=== PATIENT | female | born 1995 | race Caucasian/White ===

== ENCOUNTER → 2017-01-27 | Outpatient (CLI) | payer OTHER ==
--- NOTE | 2017-01-27 09:31 | US ---
EXAMINATION TYPE: US gallbladder DATE OF EXAM: 01/27/2017 COMPARISON: CT abdomen and pelvis May 06, 2013 CLINICAL HISTORY: R10.11 RUQ PAIN. Pain ongoing for 1 month EXAM MEASUREMENTS: Liver Length: 18.5 cm Gallbladder Wall: 0.2 cm CBD: 0.5 cm Right Kidney: 10.0 x 5.8 x 4.5 cm larger body habitus Pancreas: wnl Liver: upper limits of normal for size, difficult to penetrate Gallbladder: 0.5cm polyp Evidence for sonographic Pantoja's sign: no CBD: wnl Right Kidney: wnl There is 5 mm nonshadowing nonmobile hyperechoic focus felt to reflect small polyp. IMPRESSION: No shadowing mobile gallstones or ultrasound evidence for acute cholecystitis.
[2017-01-27 09:44] LABS: Basophils % (A) 1 %; CH 27.5; CHCM 34.8; Eosinophils # (A) 0.2 k/uL (0-0.7); Eosinophils % (A) 3 %; HCT 40.1 % (34.0-46.0); HGB 13.9 gm/dL (11.4-16.0); Luc # (Auto) 0.14; Luc % (Auto) 2; Lymphocytes % (A) 29 %; MCH 27.4 pg (25.0-35.0); MCHC 34.6 g/dL (31.0-37.0); MCV 79.3 fL (80.0-100.0); Mean Platelet Volume 6.6; Monocytes # (A) 0.4 k/uL (0-1.0); Monocytes % (A) 5 %; Neutrophils # (A) 4.1 k/uL (1.3-7.7); Neutrophils % (A) 59 %; RBC 5.06 m/uL (3.80-5.40); RDW 13.4 % (11.5-15.5); WBC 6.9 k/uL (3.8-10.6); WBC (Perox) 7.41
[2017-01-27 10:15] LABS: ALT 33 U/L (9-52); AST 21 U/L (14-36); Alkaline Phosphatase 76 U/L (38-126); Anion Gap 11 mmol/L; Blood Urea Nitrogen 8 mg/dL (7-17); Calcium 9.1 mg/dL (8.4-10.2); Carbon Dioxide 25 mmol/L (22-30); Chloride 105 mmol/L (98-107); Cholesterol 171 mg/dL (<200); Glucose 82 mg/dL (74-99); HDL Cholesterol 43 mg/dL (40-60); Non-African American GFR(MDRD) >60 (>60 ml/min/1.73 sqM); Potassium 4.4 mmol/L (3.5-5.1); Sodium 141 mmol/L (137-145); Total Bilirubin 0.3 mg/dL (0.2-1.3); Total Protein 7.1 g/dL (6.3-8.2)
== END | disposition home or self-care (01) ==
LOC: RADUSWWP 12-23 06:46
PROVIDERS: ATTEND Family Medicine
DX: R10.11 Right upper quadrant pain (principal)
CPT/HCPCS: 36415; 76705; 80053; 80061; 84443; 85025

== ENCOUNTER 2017-12-25 06:14 | Emergency (ER) | payer OTHER ==
[2017-12-25] MEDS ORDERED: SODIUM CHLORIDE 0.9% 1,000 ML IV ONE (06:33)
[2017-12-25] MEDS ORDERED: ONDANSETRON 4 MG/2 ML VIAL IVP STA (06:33)
[2017-12-25] MEDS ORDERED: ACETAMINOPHEN TAB 500 MG TAB PO STA (06:34)
[2017-12-25] MEDS ORDERED: KETOROLAC 30 MG/ML 1 ML VIAL IVP STA (06:34)
--- NOTE | 2017-12-25 06:44 | ED ---
Skin/Abscess/FB HPI - General Chief complaint: Skin/Abscess/Foreign Body Stated complaint: Sunburn/Nausea Time Seen by Provider: 12/25/17 06:30 Source: patient, RN notes reviewed, old records reviewed Mode of arrival: ambulatory Limitations: no limitations - History of Present Illness Initial comments: 22-year-old female presents emergency room stay she would've severe sunburn over her entire body. Patient reports that she was out at the beach [place] 5 hours, for the first time. Patient states that she did wear sunblock. She reports today she had diarrhea this felt very nauseated. She reports that she is not had any Motrin or Tylenol. She try to make herself vomit. She denies any fever but reports she feels chilled. No other symptoms at this time. - Related Data Home Medications Medication Instructions Recorded Confirmed Pnv,Calcium 72/Iron/Folic Acid 1 each PO DAILY 11/13/15 12/09/15 [ Plus Tablet] Previous Rx's Medication Instructions Recorded Acetaminophen-Codeine 300-30mg 1 each PO Q4HR PRN #30 tab 12/10/15 [Tylenol w/codeine #3] Ibuprofen [Motrin] 600 mg PO Q6HR PRN #60 tab 12/10/15 Ibuprofen [Motrin] 600 mg PO Q8HR PRN #20 tab 12/25/17 Allergies Allergy/AdvReac Type Severity Reaction Status Date / Time No Known Allergies Allergy Verified 12/25/17 06:23 Review of Systems ROS Statement: Those systems with pertinent positive or pertinent negative responses have been documented in the HPI. ROS Other: All systems not noted in ROS Statement are negative. Past Medical History Past Medical History: No Reported History History of Any Multi-Drug Resistant Organisms: None Reported Past Surgical History: No Surgical Hx Reported Past Anesthesia/Blood Transfusion Reactions: No Reported Reaction Past Psychological History: No Psychological Hx Reported Smoking Status: Current some day smoker Past Alcohol Use History: Occasional Past Drug Use History: None Reported - Past Family History Father Family Medical History: No Reported History General Exam - General Exam Comments Initial Comments: This Patient since [id number] female. Alert and oriented. No acute distress. Limitations: no limitations General appearance: alert, in no apparent distress Head exam: Present: atraumatic, normocephalic, normal inspection Eye exam: Present: normal appearance, PERRL, EOMI. Absent: scleral icterus, conjunctival injection, periorbital swelling ENT exam: Present: normal exam, mucous membranes moist Neck exam: Present: normal inspection. Absent: tenderness, meningismus, lymphadenopathy Respiratory exam: Present: normal lung sounds bilaterally. Absent: respiratory distress, wheezes, rales, rhonchi, stridor Cardiovascular Exam: Present: regular rate, normal rhythm, normal heart sounds. Absent: systolic murmur, diastolic murmur, rubs, gallop, clicks Extremities exam: Present: normal inspection, full ROM, normal capillary refill. Absent: tenderness, pedal edema, joint swelling, calf tenderness Back exam: Present: normal inspection Neurological exam: Present: alert, oriented X3, CN II-XII intact Skin exam: Present: warm, dry, intact, normal color, rash (First-degree burn over chest abdomen back legs and arms and face evidence of lines from bathing suit.) Course Vital Signs 12/25/17 06:19 Temperature 98.2 F Pulse Rate 106 H Respiratory 19 Rate Blood Pressure 110/65 O2 Sat by Pulse 100 Oximetry Medical Decision Making - Medical Decision Making 22-year-old female presents emergency room stay she would've severe sunburn over her entire body. Patient reports that she was out at the beach yesterday for 5 hours, for the first time. Patient states that she did wear sunblock. She reports today she had diarrhea this felt very nauseated. Patient has first- degree sheikh over her chest, face, back, abdomen, arms and legs. Patient was given 1 L of fluid, Toradol and Zofran. She was reevaluated and feels much better at this time. Discussion is to take anti-inflammatory medication and do no baths as well as apply aloe over her skin. She is off today for work. Return tomorrow. Discussed that should that she remain hydrated today. A questions answered return parameters were discussed. Disposition Clinical Impression: Sunburn of first degree Disposition: HOME SELF-CARE Condition: Good Instructions: Sunburn (ED) Additional Instructions: Patient is to rest, remain hydrated. Apply aloe to skin for pain relief. Patient should return to emergency department if any alarming signs or symptoms occur. Take Motrin every 4-6 hours. Prescriptions: Ibuprofen [Motrin] 600 mg PO Q8HR PRN #20 tab PRN Reason: Pain Is patient prescribed a controlled substance at d/c from ED?: No When asked, does pt state using other controlled substances?: No If prescribed controlled substance>3 days was MAPS reviewed?: No If opioid is for acute pain is fill amount 7 days or less?: No If Rx opioid, was Start Talking consent form obtained?: No Referrals: Joel Sainz Jr, DO [Primary Care Provider] - 1-2 days Time of Disposition: 07:46
[2017-12-25] MEDS ORDERED: ONDANSETRON 4 MG ODT STARTER PACK 2 TAB BTL PO STA (07:46)
[2017-12-25 07:58] VITALS: BP 121/64; PULSE 89; RESP 18; TEMP 97.9
== END 2017-12-25 08:02 | disposition home or self-care (01) ==
LOC: EC 06:14
DX: L55.0 Sunburn of first degree (principal); R19.7 Diarrhea, unspecified; R11.0 Nausea; F17.200 Nicotine dependence, unspecified, uncomplicated
CPT/HCPCS: 99283; 96374; 96375; 96361; J2405; J1885; S0119

== ENCOUNTER 2018-09-11 11:30 | Emergency (ER) | payer MEDICAID, OTHER ==
[2018-09-11 11:37] VITALS: RESP 18
--- NOTE | 2018-09-11 11:40 | ED ---
General Adult HPI - General Chief complaint: Dizziness Stated complaint: Hypoglycemia Time Seen by Provider: 09/11/18 11:39 Source: patient, RN notes reviewed Mode of arrival: ambulatory Limitations: no limitations - History of Present Illness Initial comments: Patient 22-year-old female presented to the emergency room today with chief complaint of possible hypoglycemia. She does admit that she feels like her sugars dropping. She does admit that she's been sick with cough congestion and body aches and chills. She states she has the flu but has not been tested. She states the symptoms started 4 days ago. She states that she's been trying to ea t and drink here and she states that she's had some dizzy episodes. She does admit that it's better after she eats something. She states that yesterday she felt very dizzy and her father helped her eat some peanut butter which made her feel better. Patient states she feels well at this time is not having the dizziness currently. She denies any other complaints. States not taken any Tylenol or Motrin for any fever. Patient denies any recent shortness of breath, chest pain, back pain, abdominal pain, nausea or vomiting, numbness or tingling, headaches or visual changes, or any other complaints. - Related Data Home Medications Medication Instructions Recorded Confirmed No Known Home Medications 09/11/18 09/11/18 Allergies Allergy/AdvReac Type Severity Reaction Status Date / Time No Known Allergies Allergy Verified 09/11/18 11:46 Review of Systems ROS Statement: Those systems with pertinent positive or pertinent negative responses have been documented in the HPI. ROS Other: All systems not noted in ROS Statement are negative. Past Medical History Past Medical History: No Reported History History of Any Multi-Drug Resistant Organisms: None Reported Past Surgical History: No Surgical Hx Reported Past Anesthesia/Blood Transfusion Reactions: No Reported Reaction Past Psychological History: No Psychological Hx Reported Smoking Status: Former smoker Past Alcohol Use History: Occasional Past Drug Use History: None Reported - Past Family History Father Family Medical History: No Reported History General Exam - General Exam Comments Initial Comments: General: The patient is awake and alert, in no distress, and does not appear acutely ill. Eye: Pupils are equal, round and reactive to light, extra-ocular movements are intact. No nystagmus. There is normal conjunctiva bilaterally. No signs of icterus. Ears, nose, mouth and throat: There are moist mucous membranes and no oral lesions. Neck: The neck is supple, there is no tenderness or JVD. Cardiovascular: There is a regular rate and rhythm. No murmur, rub or gallop is appreciated. Respiratory: Lungs are clear to auscultation, respirations are non-labored, breath sounds are equal. No wheezes, stridor, rales, or rhonchi. Musculoskeletal: Normal ROM, no tenderness. Strength 5/5. Sensation intact. Pulses equal bilaterally 2+. Neurological: A&O x 3. CN II-XII intact, There are no obvious motor or sensory deficits. Coordination appears grossly intact. Speech is normal. Skin: Skin is warm and dry and no rashes or lesions are noted. Psychiatric: Cooperative, appropriate mood & affect, normal judgment. Limitations: no limitations Course Vital Signs 09/11/18 11:33 Temperature 99.2 F Pulse Rate 88 Respiratory 18 Rate Blood Pressure 127/83 O2 Sat by Pulse 98 Oximetry Medical Decision Making - Medical Decision Making Patient reexamined at this time shows no signs of distress. Patient is influenza A positive. She has been sick over the last 4 days. She is out side of therapeutic range for Tamiflu. Patient blood work reviewed in a finger stick glucose was 86 on the blood work 78. Patient does admit that she's felt like her sugars drop which are audible recorded at home. Her appetite has been decreased due to recent influenza. Patient does admit that she's feeling better. She states appetite has been increasing. She is advised that she should be eating regular meals. Advised that she can keep a snack with her as well to help keep her sugar elevated. At this time she'll be discharged home she is advised follow-up family doctor over the next 2 days. Advised return if any symptoms increase or worsen. - Lab Data Result diagrams: 09/11/18 12:57 09/11/18 12:57 Lab Results 09/11/18 09/11/18 09/11/18 Range/Units 12:34 12:34 12:38 WBC (3.8-10.6) k/uL RBC (3.80-5.40) m/uL Hgb (11.4-16.0) gm/dL Hct (34.0-46.0) % MCV (80.0-100.0) fL MCH (25.0-35.0) pg MCHC (31.0-37.0) g/dL RDW (11.5-15.5) % Plt Count (150-450) k/uL Neutrophils % % Lymphocytes % % Monocytes % % Eosinophils % % Basophils % % Neutrophils # (1.3-7.7) k/uL Lymphocytes # (1.0-4.8) k/uL Monocytes # (0-1.0) k/uL Eosinophils # (0-0.7) k/uL Basophils # (0-0.2) k/uL Sodium (137-145) mmol/L Potassium (3.5-5.1) mmol/L Chloride (98-107) mmol/L Carbon Dioxide (22-30) mmol/L Anion Gap mmol/L BUN (7-17) mg/dL Creatinine (0.52-1.04) mg/dL Est GFR (CKD-EPI)AfAm (>60 ml/min/1.73 sqM) Est GFR (CKD-EPI)NonAf (>60 ml/min/1.73 sqM) Glucose (74-99) mg/dL POC Glucose (mg/dL) 86 (75-99) mg/dL POC Glu Coach Wirer ID Salgat, Eve Calcium (8.4-10.2) mg/dL Total Bilirubin (0.2-1.3) mg/dL AST (14-36) U/L ALT (9-52) U/L Alkaline Phosphatase (38-126) U/L Total Protein (6.3-8.2) g/dL Albumin (3.5-5.0) g/dL Urine Color Yellow Urine Appearance Clear (Clear) Urine pH 6.0 (5.0-8.0) Ur Specific [place] 1.021 (1.001-1.035) Urine Protein Trace H (Negative) Urine Glucose (UA) Negative (Negative) Urine Ketones Negative (Negative) Urine Blood Negative (Negative) Urine Nitrite Negative (Negative) Urine Bilirubin Negative (Negative) Urine Urobilinogen <2.0 (<2.0) mg/dL Ur Leukocyte Esterase Negative (Negative) Urine HCG, Qual Not Detected (Not Detectd) Influenza Type A RNA (Not Detectd) Influenza Type B (PCR) (Not Detectd) 09/11/18 09/11/18 09/11/18 Range/Units 12:40 12:57 12:57 WBC 4.4 (3.8-10.6) k/uL RBC 4.91 (3.80-5.40) m/uL Hgb 13.0 (11.4-16.0) gm/dL Hct 39.8 (34.0-46.0) % MCV 81.0 (80.0-100.0) fL MCH 26.5 (25.0-35.0) pg MCHC 32.7 (31.0-37.0) g/dL RDW 12.5 (11.5-15.5) % Plt Count 199 (150-450) k/uL Neutrophils % 56 % Lymphocytes % 33 % Monocytes % 8 % Eosinophils % 1 % Basophils % 1 % Neutrophils # 2.4 (1.3-7.7) k/uL Lymphocytes # 1.4 (1.0-4.8) k/uL Monocytes # 0.4 (0-1.0) k/uL Eosinophils # 0.0 (0-0.7) k/uL Basophils # 0.0 (0-0.2) k/uL Sodium 138 (137-145) mmol/L Potassium 4.7 (3.5-5.1) mmol/L Chloride 102 (98-107) mmol/L Carbon Dioxide 25 (22-30) mmol/L Anion Gap 11 mmol/L BUN 10 (7-17) mg/dL Creatinine 0.67 (0.52-1.04) mg/dL Est GFR (CKD-EPI)AfAm >90 (>60 ml/min/1.73 sqM) Est GFR (CKD-EPI)NonAf >90 (>60 ml/min/1.73 sqM) Glucose 78 (74-99) mg/dL POC Glucose (mg/dL) (75-99) mg/dL POC Glu Coach Wirer ID Calcium 9.2 (8.4-10.2) mg/dL Total Bilirubin 0.4 (0.2-1.3) mg/dL AST 33 (14-36) U/L ALT 42 (9-52) U/L Alkaline Phosphatase 74 (38-126) U/L Total Protein 7.9 (6.3-8.2) g/dL Albumin 4.7 (3.5-5.0) g/dL Urine Color Urine Appearance (Clear) Urine pH (5.0-8.0) Ur Specific Ellsworth (1.001-1.035) Urine Protein (Negative) Urine Glucose (UA) (Negative) Urine Ketones (Negative) Urine Blood (Negative) Urine Nitrite (Negative) Urine Bilirubin (Negative) Urine Urobilinogen (<2.0) mg/dL Ur Leukocyte Esterase (Negative) Urine HCG, Qual (Not Detectd) Influenza Type A RNA Detected H (Not Detectd) Influenza Type B (PCR) Not Detected (Not Detectd) Disposition Clinical Impression: Influenza A, Hypoglycemia Disposition: HOME SELF-CARE Condition: Good Instructions (If sedation given, give patient instructions): Influenza (ED) Additional Instructions: Please follow-up with family doctor in the next 2 days of symptoms have not improved. Please return to emergency room if the symptoms increase or worsen or for any other concerns. Is patient prescribed a controlled substance at d/c from ED?: No Referrals: Joel Sainz Jr, [Primary Care Provider] - 1-2 days Time of Disposition: 13:44
[2018-09-11] MEDS ORDERED: SODIUM CHLORIDE 0.9% 1,000 ML IV STA (12:01)
[2018-09-11 12:40] LABS: Glucose,Whole Blood 86 mg/dL (75-99)
[2018-09-11 12:59] LABS: Appearance,Urine Clear (Clear); Bilirubin,Urine Negative (Negative); Blood,Urine Negative (Negative); Color,Urine Yellow; Glucose,Urine (UA) Negative (Negative); Ketones,Urine Negative (Negative); Leukocyte Esterase,Urine Negative (Negative); Nitrite,Urine Negative (Negative); Protein,Urine Trace (Negative); Specific Gravity,Urine 1.021 (1.001-1.035); Urobilinogen,Urine <2.0 mg/dL (<2.0)
[2018-09-11 13:17] LABS: ALT 42 U/L (9-52); AST 33 U/L (14-36); Albumin 4.7 g/dL (3.5-5.0); Alkaline Phosphatase 74 U/L (38-126); Anion Gap 11 mmol/L; Blood Urea Nitrogen 10 mg/dL (7-17); Calcium 9.2 mg/dL (8.4-10.2); Carbon Dioxide 25 mmol/L (22-30); Chloride 102 mmol/L (98-107); Glucose 78 mg/dL (74-99); Potassium 4.7 mmol/L (3.5-5.1); Sodium 138 mmol/L (137-145); Total Bilirubin 0.4 mg/dL (0.2-1.3); Total Protein 7.9 g/dL (6.3-8.2)
[2018-09-11 13:22] LABS: Basophils % (A) 1 %; Eosinophils % (A) 1 %; HCT 39.8 % (34.0-46.0); Lymphocytes # (A) 1.4 k/uL (1.0-4.8); Lymphocytes % (A) 33 %; MCH 26.5 pg (25.0-35.0); MCHC 32.7 g/dL (31.0-37.0); Monocytes # (A) 0.4 k/uL (0-1.0); Monocytes % (A) 8 %; Neutrophils # (A) 2.4 k/uL (1.3-7.7); Neutrophils % (A) 56 %; Platelet Count 199 k/uL (150-450); RBC 4.91 m/uL (3.80-5.40); RDW 12.5 % (11.5-15.5); WBC 4.4 k/uL (3.8-10.6)
[2018-09-11 14:13] VITALS: BP 123/80; PULSE 79; TEMP 98.6
== END 2018-09-11 14:14 | disposition home or self-care (01) ==
LOC: EC 11:30
DX: E16.2 Hypoglycemia, unspecified (principal); J10.1 Influenza due to other identified influenza virus with other respiratory manifestations; Z87.891 Personal history of nicotine dependence
CPT/HCPCS: 36415; 80053; 81003; 81025; 85025; 87502; 93005; 96360; 96361; 99284

== ENCOUNTER 2019-02-22 08:18 | Emergency (ER) | payer MEDICAID, OTHER ==
[2019-02-22 08:23] VITALS: RESP 18; TEMP 98.7
[2019-02-22] MEDS: KETOROLAC 30 MG/ML 1 ML VIAL IVP STA (08:47)
[2019-02-22] MEDS: SODIUM CHLORIDE 0.9% 500 ML 500 ML IV STA (08:47)
[2019-02-22 08:53] LABS: Basophils # (A) 0.1 k/uL (0-0.2); Basophils % (A) 1 %; Eosinophils # (A) 0.5 k/uL (0-0.7); Eosinophils % (A) 6 %; HCT 40.6 % (34.0-46.0); HGB 14.2 gm/dL (11.4-16.0); Lymphocytes # (A) 2.5 k/uL (1.0-4.8); Lymphocytes % (A) 29 %; MCH 28.8 pg (25.0-35.0); MCV 82.1 fL (80.0-100.0); Mean Platelet Volume 7.2; Monocytes # (A) 0.5 k/uL (0-1.0); Monocytes % (A) 5 %; Neutrophils % (A) 56 %; Platelet Count 309 k/uL (150-450); RBC 4.94 m/uL (3.80-5.40); RDW 14.7 % (11.5-15.5); WBC 8.8 k/uL (3.8-10.6)
[2019-02-22 08:59] LABS: ALT 39 U/L (9-52); AST 31 U/L (14-36); African American GFR (CKD) >90 (>60 ml/min/1.73 sqM); Albumin 4.4 g/dL (3.5-5.0); Alkaline Phosphatase 61 U/L (38-126); Anion Gap 10 mmol/L; Blood Urea Nitrogen 9 mg/dL (7-17); Calcium 9.1 mg/dL (8.4-10.2); Carbon Dioxide 27 mmol/L (22-30); Chloride 103 mmol/L (98-107); Glucose 98 mg/dL (74-99); Potassium 4.2 mmol/L (3.5-5.1); Sodium 140 mmol/L (137-145); Total Bilirubin 0.3 mg/dL (0.2-1.3); Total Protein 7.5 g/dL (6.3-8.2)
--- NOTE | 2019-02-22 09:03 | XR ---
EXAMINATION TYPE: XR chest 2V DATE OF EXAM: 02/22/2019 COMPARISON: 10/22/2009 HISTORY: 23-year-old female with chest pain and shortness of breath TECHNIQUE: PA and lateral views FINDINGS: The cardiomediastinal silhouette, aorta, and pulmonary vasculature are within normal limits. There is some focal patchy right basilar opacity. No pleural effusion. IMPRESSION: Patchy right basilar atelectasis versus early pneumonia. Correlate with patient's symptoms.
--- NOTE | 2019-02-22 09:47 | ED ---
Chest Pain HPI - General Chief Complaint: Chest Pain Stated Complaint: CHEST PAIN, BACK OF NECK AND LEFT ARM NUMBNESS Time Seen by Provider: 02/22/19 08:31 Source: patient, RN notes reviewed Mode of arrival: ambulatory Limitations: no limitations - History of Present Illness Initial Comments: 23-year-old female presents emergency Department chief complaint chest pain. Patient states that symptoms started around 2 AM. Patient denies any prior cardiac disease no history of lung disease. Patient states that she has pain with movement and deep inspiration which complaint of shortness of breath and pain that radiates into her arm region but states is worse with arm movement. Patient denies any focal weakness no current vomiting states that she was nauseated for the pain but is improving. Patient did not take any pain meds. Patient has no family heart disease. - Related Data Previous Rx's Medication Instructions Recorded Ibuprofen [Motrin] 600 mg PO Q8HR PRN #30 tab 02/22/19 Allergies Allergy/AdvReac Type Severity Reaction Status Date / Time No Known Allergies Allergy Verified 02/22/19 09:01 Review of Systems ROS Statement: Those systems with pertinent positive or pertinent negative responses have been documented in the HPI. ROS Other: All systems not noted in ROS Statement are negative. EKG Findings - EKG Comments: EKG Findings:: EKG performed at a: 47 normal sinus rhythm rate of 93 DC 158 QRS 90 QT/QTC 368/457 Past Medical History Past Medical History: No Reported History History of Any Multi-Drug Resistant Organisms: None Reported Past Surgical History: Ear Surgery Past Anesthesia/Blood Transfusion Reactions: No Reported Reaction Past Psychological History: Depression Smoking Status: Current every day smoker Past Alcohol Use History: Occasional Past Drug Use History: None Reported - Past Family History Father Family Medical History: No Reported History General Exam Limitations: no limitations General appearance: alert, in no apparent distress Head exam: Present: atraumatic, normocephalic, normal inspection Eye exam: Present: normal appearance, PERRL, EOMI. Absent: scleral icterus, conjunctival injection, periorbital swelling ENT exam: Present: normal exam, normal oropharynx, mucous membranes moist Neck exam: Present: normal inspection, full ROM. Absent: tenderness, meningismus, lymphadenopathy Respiratory exam: Present: normal lung sounds bilaterally, chest wall tenderness (Tenderness sternal to left sided). Absent: respiratory distress, wheezes, rales, rhonchi, stridor Cardiovascular Exam: Present: regular rate, normal rhythm, normal heart sounds. Absent: systolic murmur, diastolic murmur, rubs, gallop, clicks GI/Abdominal exam: Present: soft, normal bowel sounds. Absent: distended, tenderness, guarding, rebound, rigid Extremities exam: Present: normal inspection, full ROM, normal capillary refill. Absent: tenderness, pedal edema, joint swelling, calf tenderness Back exam: Present: full ROM. Absent: tenderness Neurological exam: Present: alert, oriented X3, CN II-XII intact, reflexes normal. Absent: motor sensory deficit Skin exam: Present: warm, dry, intact, normal color. Absent: rash Course Vital Signs 02/22/19 08:21 Temperature 98.7 F Pulse Rate 97 Respiratory 18 Rate Blood Pressure 140/84 O2 Sat by Pulse 100 Oximetry Chest Pain MDM - MDM 23-year-old female presents emergency Department with chief complaint of chest pain. Patient had labs, EKG, chest x-ray. Patient symptoms are reproducible more consistent with chest wall pain costochondritis. Patient we discharged with anti-inflammatories. Disposition Clinical Impression: Chest wall pain, Costochondritis, acute Disposition: HOME SELF-CARE Condition: Stable Instructions (If sedation given, give patient instructions): Costochondritis (ED), Chest Pain (ED) Additional Instructions: Please return to the Emergency Department if symptoms worsen or any other concerns. Prescriptions: Ibuprofen [Motrin] 600 mg PO Q8HR PRN #30 tab PRN Reason: Pain Is patient prescribed a controlled substance at d/c from ED?: No Referrals: Joel Sainz Jr, [Primary Care Provider] - 1-2 days Time of Disposition: 09:46
[2019-02-22 10:12] VITALS: BP 113/68; PULSE 80
== END 2019-02-22 10:20 | disposition home or self-care (01) ==
LOC: EC 08:18
DX: M94.0 Chondrocostal junction syndrome [Tietze] (principal); F17.200 Nicotine dependence, unspecified, uncomplicated
CPT/HCPCS: 36415; 93005; 85379; 80053; 83690; 84484; 85025; 71046; 99284; 96374; 96361; J1885

== ENCOUNTER → 2021-03-24 | Outpatient (CLI) | payer OTHER ==
--- NOTE | 2021-03-24 08:56 | US ---
EXAMINATION TYPE: US gallbladder DATE OF EXAM: 03/24/2021 COMPARISON: US 2014 CLINICAL HISTORY: K82.4 GB POLYP. Patient states no symptoms, has a history of gallbladder polyp EXAM MEASUREMENTS: Liver Length: 16.2 cm Gallbladder Wall: 0.2 cm CBD: 0.3 cm Right Kidney: 10.6 x 3.9 x 5.8 cm Pancreas: wnl Liver: wnl Gallbladder: small 0.4cm polyp Evidence for sonographic Pantoja's sign: no CBD: wnl Right Kidney: wnl IMPRESSION: 1. Tiny polyp or small nonshadowing gallstone within the gallbladder.
== END | disposition home or self-care (01) ==
LOC: RADUSWWP 07:07
PROVIDERS: ATTEND Surgery
DX: D41.4 Neoplasm of uncertain behavior of bladder (principal); K82.4 Cholesterolosis of gallbladder
CPT/HCPCS: 76705

== ENCOUNTER → 2021-04-27 | Day surgery (SDC) | payer OTHER ==
[2021-04-26 08:44] VITALS: BMI 24.7
[~2021-04-27] MED LIST: LACTATED RINGERS 1,000 ML IV SCH; LIDOCAINE 1% (10MG/ML) FOR IV START INTRADERMA ONE; MIDAZOLAM 2 MG/2 ML VIAL ONE; PROPOFOL 10 MG/ML 20 ML VIAL IV ONE; fentaNYL (PF) 50 MCG/ML 2 ML AMP ONE
[2021-04-27 10:31] VITALS: TEMP 98.6
--- NOTE | 2021-04-27 11:06 | P.GSHP ---
History of Present Illness H&P Date: 04/27/21 Chief Complaint: Rectal bleeding Patient here today for flexible sigmoidoscopy with hemorrhoidal banding. Patient has complaints of a bulge in the right perianal location. Says it is hard for her to tell if it is internal or external went feels like a pimple at times. Mild discomfort as well. Past Medical History Past Medical History: No Reported History History of Any Multi-Drug Resistant Organisms: None Reported Past Surgical History: Ear Surgery Past Anesthesia/Blood Transfusion Reactions: No Reported Reaction, Motion Sickness Past Psychological History: Anxiety, Depression Smoking Status: Current every day smoker Past Alcohol Use History: Occasional Additional Past Alcohol Use History / Comment(s): Smokes 1-2 cigarettes daily X3-4 yrs. Past Drug Use History: None Reported Additional Drug Use History / Comment(s): Marijuana once a month. Aware no use 24 hrs prior to procedure. - Past Family History Father Family Medical History: Unable to Obtain Additional Family Medical History / Comment(s): Patient was adopted, family hx unknown. Medications and Allergies Home Medications Medication Instructions Recorded Confirmed Type No Known Home Medications 04/26/21 04/26/21 History Allergies Allergy/AdvReac Type Severity Reaction Status Date / Time No Known Allergies Allergy Verified 04/26/21 08:33 Surgical - Exam Vital Signs Temp Pulse Resp BP Pulse Ox 98.6 F 97 20 139/74 99 04/27/21 10:29 04/27/21 10:29 04/27/21 10:29 04/27/21 10:29 04/27/21 10:29 Physical exam: General: Well-developed, well-nourished HEENT: Normocephalic, sclerae nonicteric Abdomen: Nontender, nondistended Extremities: No edema Neuro: Alert and oriented Assessment and Plan (1) Rectal bleeding Narrative/Plan: Will proceed with flexible sigmoidoscopy with possible hemorrhoidal banding. Risks of bleeding, infection, scarring, pain, recurrence reviewed. She understands and wishes to proceed. Current Visit: Yes Status: Acute Code(s): K62.5 - HEMORRHAGE OF ANUS AND RECTUM SNOMED Code(s): 31878933
--- NOTE | 2021-04-27 11:16 | P.PCN ---
Date of Procedure: 04/27/21 Procedure(s) Performed: PREOPERATIVE DIAGNOSIS: Rectal bleeding POSTOPERATIVE DIAGNOSIS: Anal fissure PROCEDURE: Flexible sigmoidoscopy, anoscopy ANESTHESIA: MAC SURGEON: Fran Velasquez M.D. SPECIMENS: None ENDOSCOPIC PROCEDURE: The patient was placed on the endoscopy table in the left decubitus position. The Olympus colonoscope was inserted into the anus and passed under direct visualization to the proximal sigmoid colon. The scope was withdrawn. There were no inflammatory or neoplastic changes throughout the sigmoid or rectum. Retroflexion at the anus revealed no significant abnormalities. The anoscope was then utilized. No sizable hemorrhoids were noted. The patient did have induration at the posterior aspect of the anus with some induration there. This was likely the pimple-like area the patient was describing. Just deep to that within the anal canal was a definite anal fissure that appeared to be the most likely source of recent pain and bleeding. This had a subacute/chronic appearance to it. The patient was taken to the recovery room in stable condition per anesthesia guidelines. RECOMMENDATIONS: Resume diet. We'll discuss endoscopy findings with the patient. Begin nitroglycerin ointment.
[2021-04-27 11:20] VITALS: RESP 16
[2021-04-27 11:33] VITALS: BP 117/77; PULSE 69
== END ==
LOC: ORWHC2ENDO 10:16
PROVIDERS: ATTEND Surgery
DX: K60.2 Anal fissure, unspecified (principal); F17.210 Nicotine dependence, cigarettes, uncomplicated
CPT/HCPCS: 45330; 81025; J2250; J3010; J2704; 46600

== ENCOUNTER 2021-06-20 19:30 | Emergency (ER) | payer OTHER ==
[2021-06-20] MEDS ORDERED: SODIUM CHLORIDE 0.9% 2,000 ML IV ONE (21:49)
--- NOTE | 2021-06-20 21:51 | ED ---
General Adult HPI - General Stated complaint: 9wks preg, bleeding and cramping Source: patient, RN notes reviewed Mode of arrival: ambulatory Limitations: no limitations - History of Present Illness Initial comments: This a 25-year-old female presents emergency Department chief complaint of nausea and vomiting, vaginal bleeding early . Patient is unsure for along she is. She is states she is seen Dr. Peace the past. She states she's had bleeding for 1 week but states that the bleeding was heavier today. Patient states she cannot keep down she's had severe nausea and vomiting. Patient states that she's had a lower abdominal cramping diffusely. Patient states that she is A0. - Related Data Previous Rx's Medication Instructions Recorded Ondansetron Odt [Zofran Odt] 4 mg PO Q8HR PRN #10 tab 06/21/21 Allergies Allergy/AdvReac Type Severity Reaction Status Date / Time No Known Allergies Allergy Verified 06/20/21 21:49 Review of Systems ROS Statement: Those systems with pertinent positive or pertinent negative responses have been documented in the HPI. ROS Other: All systems not noted in ROS Statement are negative. Past Medical History Past Medical History: No Reported History History of Any Multi-Drug Resistant Organisms: None Reported Past Surgical History: Ear Surgery Past Anesthesia/Blood Transfusion Reactions: No Reported Reaction, Motion Sickness Past Psychological History: Anxiety, Depression Smoking Status: Current every day smoker Past Alcohol Use History: Occasional Additional Past Alcohol Use History / Comment(s): Smokes 1-2 cigarettes daily X3-4 yrs. Past Drug Use History: None Reported Additional Drug Use History / Comment(s): Marijuana once a month. Aware no use 24 hrs prior to procedure. - Past Family History Father Family Medical History: Unable to Obtain Additional Family Medical History / Comment(s): Patient was adopted, family hx unknown. General Exam General appearance: alert, in no apparent distress Head exam: Present: atraumatic, normocephalic, normal inspection Eye exam: Present: normal appearance, PERRL, EOMI. Absent: scleral icterus, conjunctival injection, periorbital swelling ENT exam: Present: normal exam, mucous membranes moist Neck exam: Present: normal inspection, full ROM. Absent: tenderness, meningismus, lymphadenopathy Respiratory exam: Present: normal lung sounds bilaterally. Absent: respiratory distress, wheezes, rales, rhonchi, stridor Cardiovascular Exam: Present: regular rate, normal rhythm, normal heart sounds. Absent: systolic murmur, diastolic murmur, rubs, gallop, clicks GI/Abdominal exam: Present: soft, normal bowel sounds. Absent: distended, tenderness, guarding, rebound, rigid Back exam: Absent: CVA tenderness (R), CVA tenderness (L) Neurological exam: Present: alert, oriented X3 Skin exam: Present: warm, dry, intact, normal color. Absent: rash Course Vital Signs 06/20/21 06/21/21 21:49 03:00 Temperature 97.0 F L 97.5 F L Pulse Rate 65 68 Respiratory 20 18 Rate Blood Pressure 141/71 113/57 O2 Sat by Pulse 98 100 Oximetry Medical Decision Making - Medical Decision Making 25-year-old presented for nausea vomiting vaginal bleeding early . Son shows small subchorionic hemorrhage. Patient has been negative blood type did receive RhoGAM she was well-hydrated able tolerate oral intake be discharged in stable condition. - Lab Data Result diagrams: 06/21/21 02:20 06/21/21 02:20 Lab Results 06/21/21 06/21/21 06/21/21 Range/Units 02:20 02:20 02:25 WBC 17.0 H (3.8-10.6) k/uL RBC 4.42 (3.80-5.40) m/uL Hgb 13.3 (11.4-16.0) gm/dL Hct 37.9 (34.0-46.0) % MCV 85.6 (80.0-100.0) fL MCH 30.0 (25.0-35.0) pg MCHC 35.1 (31.0-37.0) g/dL RDW 12.6 (11.5-15.5) % Plt Count 328 (150-450) k/uL MPV 7.2 Neutrophils % 94 % Lymphocytes % 4 % Monocytes % 1 % Eosinophils % 0 % Basophils % 0 % Neutrophils # 15.9 H (1.3-7.7) k/uL Lymphocytes # 0.7 L (1.0-4.8) k/uL Monocytes # 0.2 (0-1.0) k/uL Eosinophils # 0.0 (0-0.7) k/uL Basophils # 0.0 (0-0.2) k/uL Sodium 137 (137-145) mmol/L Potassium 3.6 (3.5-5.1) mmol/L Chloride 99 (98-107) mmol/L Carbon Dioxide 21 L (22-30) mmol/L Anion Gap 17 mmol/L BUN 16 (7-17) mg/dL Creatinine 0.46 L (0.52-1.04) mg/dL Est GFR (CKD-EPI)AfAm >90 (>60 ml/min/1.73 sqM) Est GFR (CKD-EPI)NonAf >90 (>60 ml/min/1.73 sqM) Glucose 125 H (74-99) mg/dL Calcium 9.9 (8.4-10.2) mg/dL Total Bilirubin 0.7 (0.2-1.3) mg/dL AST 29 (14-36) U/L ALT 24 (4-34) U/L Alkaline Phosphatase 47 (38-126) U/L Total Protein 8.0 (6.3-8.2) g/dL Albumin 5.0 (3.5-5.0) g/dL Urine Color Urine Appearance (Clear) Urine pH (5.0-8.0) Ur Specific [place] (1.001-1.035) Urine Protein (Negative) Urine Glucose (UA) (Negative) Urine Ketones (Negative) Urine Blood (Negative) Urine Nitrite (Negative) Urine Bilirubin (Negative) Urine Urobilinogen (<2.0) mg/dL Ur Leukocyte Esterase (Negative) Urine WBC (0-5) /hpf Ur Squamous Epith Cells (0-4) /hpf Urine Mucus (None) /hpf Coronavirus (PCR) Not Detected (Not Detectd) 06/21/21 Range/Units 03:43 WBC (3.8-10.6) k/uL RBC (3.80-5.40) m/uL Hgb (11.4-16.0) gm/dL Hct (34.0-46.0) % MCV (80.0-100.0) fL MCH (25.0-35.0) pg MCHC (31.0-37.0) g/dL RDW (11.5-15.5) % Plt Count (150-450) k/uL MPV Neutrophils % % Lymphocytes % % Monocytes % % Eosinophils % % Basophils % % Neutrophils # (1.3-7.7) k/uL Lymphocytes # (1.0-4.8) k/uL Monocytes # (0-1.0) k/uL Eosinophils # (0-0.7) k/uL Basophils # (0-0.2) k/uL Sodium (137-145) mmol/L Potassium (3.5-5.1) mmol/L Chloride (98-107) mmol/L Carbon Dioxide (22-30) mmol/L Anion Gap mmol/L BUN (7-17) mg/dL Creatinine (0.52-1.04) mg/dL Est GFR (CKD-EPI)AfAm (>60 ml/min/1.73 sqM) Est GFR (CKD-EPI)NonAf (>60 ml/min/1.73 sqM) Glucose (74-99) mg/dL Calcium (8.4-10.2) mg/dL Total Bilirubin (0.2-1.3) mg/dL AST (14-36) U/L ALT (4-34) U/L Alkaline Phosphatase (38-126) U/L Total Protein (6.3-8.2) g/dL Albumin (3.5-5.0) g/dL Urine Color Yellow Urine Appearance Clear (Clear) Urine pH 6.0 (5.0-8.0) Ur Specific [place] 1.042 H (1.001-1.035) Urine Protein 2+ H (Negative) Urine Glucose (UA) Negative (Negative) Urine Ketones 4+ H (Negative) Urine Blood Negative (Negative) Urine Nitrite Negative (Negative) Urine Bilirubin Negative (Negative) Urine Urobilinogen <2.0 (<2.0) mg/dL Ur Leukocyte Esterase Negative (Negative) Urine WBC 2 (0-5) /hpf Ur Squamous Epith Cells 2 (0-4) /hpf Urine Mucus Many H (None) /hpf Coronavirus (PCR) (Not Detectd) Disposition Clinical Impression: , Subchorionic hemorrhage, Nausea & vomiting, Dehydration Disposition: HOME SELF-CARE Condition: Stable Instructions (If sedation given, give patient instructions): Nausea and Vomiting in (ED) Additional Instructions: Please return to the Emergency Department if symptoms worsen or any other concerns. Prescriptions: Ondansetron Odt [Zofran Odt] 4 mg PO Q8HR PRN #10 tab PRN Reason: Nausea Is patient prescribed a controlled substance at d/c from ED?: No Referrals: Joel Sainz Jr, [Primary Care Provider] - 1-2 days Time of Disposition: 04:20
--- NOTE | 2021-06-20 22:51 | US ---
EXAMINATION TYPE: Transabdominal DATE OF EXAM: 06/20/2021 10:21 PM COMPARISON: NONE CLINICAL HISTORY: pain. Pelvic pain with nausea and vomiting EXAM PERFORMED: Transabdominal (TA) EXAM MEASUREMENTS: GESTATIONAL AGE / DATING Dates by LMP: (8 weeks/0 days) EDC: 01/30/2022 Dates by First Scan: (9 weeks/1 days) EDC: 01/21/2022 Dates by Current Scan for: (9 weeks/2 days) EDC: 01/21/2022 MATERNAL ANATOMY Uterus: Right Ovary: 3.0 x 2.3 x 2.5 cm Left Ovary: 3.7 x 1.9 x 1.62 cm Post CDS / Adnexa: WNL Presence of free fluid: None Presence of corpus luteal cyst: Yes on Right measuring 1.9 x 1.7 x 1.8 cm Presence of subchorionic bleed: Hypoechoic next to GS 1.6 x 0.8 x 1.2 cm GESTATION / SURVEY CRL: (9 weeks/2 days) Yolk Sac (normal less than 6mm): 0.3 cm Heart Rate: 174 bpm Rhythm: Normal IUP: Viable IUP Date of LMP: 04/25/2021 Single live IUP, Hypoechoic area seen next to Gestational Sac, possible subchorionic bleed. IMPRESSION: The ultrasound gestational age is 9 weeks and 2 days. Possible tiny subchorionic hemorrhage.
[2021-06-21] MEDS ORDERED: ONDANSETRON ODT 4 MG TAB PO STA (01:19)
[2021-06-21] MEDS ORDERED: METOCLOPRAMIDE 5 MG/ML 2 ML VIAL IVP STA (02:26)
[2021-06-21 02:42] LABS: Basophils % (A) 0 %; Eosinophils % (A) 0 %; HCT 37.9 % (34.0-46.0); HGB 13.3 gm/dL (11.4-16.0); Lymphocytes # (A) 0.7 k/uL (1.0-4.8); Lymphocytes % (A) 4 %; MCHC 35.1 g/dL (31.0-37.0); MCV 85.6 fL (80.0-100.0); Mean Platelet Volume 7.2; Monocytes # (A) 0.2 k/uL (0-1.0); Monocytes % (A) 1 %; Neutrophils # (A) 15.9 k/uL (1.3-7.7); Neutrophils % (A) 94 %; Platelet Count 328 k/uL (150-450); RBC 4.42 m/uL (3.80-5.40); RDW 12.6 % (11.5-15.5)
[2021-06-21 02:53] LABS: ALT 24 U/L (4-34); AST 29 U/L (14-36); African American GFR (CKD) >90 (>60 ml/min/1.73 sqM); Alkaline Phosphatase 47 U/L (38-126); Anion Gap 17 mmol/L; Blood Urea Nitrogen 16 mg/dL (7-17); Calcium 9.9 mg/dL (8.4-10.2); Carbon Dioxide 21 mmol/L (22-30); Chloride 99 mmol/L (98-107); Glucose 125 mg/dL (74-99); Non-African American GFR(CKD) >90 (>60 ml/min/1.73 sqM); Potassium 3.6 mmol/L (3.5-5.1); Sodium 137 mmol/L (137-145); Total Bilirubin 0.7 mg/dL (0.2-1.3)
[2021-06-21 03:03] VITALS: PULSE 68
[2021-06-21] MEDS ORDERED: ONDANSETRON 4 MG/2 ML VIAL IVP STA (03:05)
[2021-06-21] MEDS ORDERED: Rhogam IMMUNE GLOBULIN 1,500 UNIT/1 ML IM ONE (03:54)
[2021-06-21 04:09] LABS: Appearance,Urine Clear (Clear); Bilirubin,Urine Negative (Negative); Blood,Urine Negative (Negative); Color,Urine Yellow; Glucose,Urine (UA) Negative (Negative); Ketones,Urine 4+ (Negative); Leukocyte Esterase,Urine Negative (Negative); Mucus,Urine Many /hpf; Nitrite,Urine Negative (Negative); Protein,Urine 2+ (Negative); Specific Gravity,Urine 1.042 (1.001-1.035); Squamous Epithelial Cell,Urine 2 /hpf (0-4); Urobilinogen,Urine <2.0 mg/dL (<2.0); WBC,Urine 2 /hpf (0-5)
[2021-06-21] MEDS ORDERED: SODIUM CHLORIDE 0.9% 1,000 ML IV ONE (04:18)
[2021-06-21 05:04] VITALS: BP 110/56; RESP 20; TEMP 98
== END 2021-06-21 05:00 | disposition home or self-care (01) ==
LOC: EC 19:30
DX: O46.91 Antepartum hemorrhage, unspecified, first trimester (principal); O21.9 Vomiting of pregnancy, unspecified; O99.281 Endocrine, nutritional and metabolic diseases complicating pregnancy, first trimester; E86.0 Dehydration; O99.331 Smoking (tobacco) complicating pregnancy, first trimester; F17.210 Nicotine dependence, cigarettes, uncomplicated; Z3A.09 9 weeks gestation of pregnancy; Z20.822 Contact with and (suspected) exposure to COVID-19
CPT/HCPCS: 36415; 76801; 80053; 81001; 84702; 85025; 86850; 86900; 86901; 87635; 96361; 96372; 96374; 96375; 99284

== ENCOUNTER 2021-07-03 06:51 | Emergency (ER) | payer OTHER ==
[2021-07-03 06:58] VITALS: TEMP 98.2
[2021-07-03] MEDS ORDERED: SODIUM CHLORIDE 0.9% 1,000 ML IV STA (07:04)
--- NOTE | 2021-07-03 07:09 | ED ---
General Adult HPI - General Chief complaint: Abdominal Pain Stated complaint: Vaginal Bleeding, 11 Weeks Time Seen by Provider: 07/03/21 06:53 Source: patient, RN notes reviewed Mode of arrival: ambulatory Limitations: no limitations - History of Present Illness Initial comments: This is a pleasant 25-year-old female who [facility] with vaginal discharge and pelvic pain. Patient is A0. Patient states she was seen here a few weeks ago and had a roll damn shot. Patient has had an ultrasound during this . She is describing sharp cramping pain to the right pelvis with brown vaginal discharge. Patient's also had cramping which is normal and the entire . Patient's sky line yarder is Dr. Peace. patient has no other significant past medical history. No headache, no fever or chills, no changes in vision or hearing, no sore throat or difficulty with speech, no neck pain, no chest pain or shortness of breath, no abdominal pain, no nausea or vomiting, no changes in urination or bowel mov ements, no numbness or tingling, no extremity pain, no skin rashes or lesions. - Related Data Previous Rx's Medication Instructions Recorded Ondansetron Odt [Zofran Odt] 4 mg PO Q8HR PRN #10 tab 06/21/21 Allergies Allergy/AdvReac Type Severity Reaction Status Date / Time No Known Allergies Allergy Verified 07/03/21 06:58 Review of Systems ROS Statement: Those systems with pertinent positive or pertinent negative responses have been documented in the HPI. ROS Other: All systems not noted in ROS Statement are negative. Past Medical History Past Medical History: No Reported History History of Any Multi-Drug Resistant Organisms: None Reported Past Surgical History: Ear Surgery Past Anesthesia/Blood Transfusion Reactions: No Reported Reaction, Motion Sickness Past Psychological History: Anxiety, Depression Smoking Status: Current every day smoker Past Alcohol Use History: Occasional Past Drug Use History: None Reported - Past Family History Father Family Medical History: Unable to Obtain Additional Family Medical History / Comment(s): Patient was adopted, family hx unknown. General Exam - General Exam Comments Initial Comments: Nontoxic appearing female in no acute distress Limitations: no limitations General appearance: alert, in no apparent distress Head exam: Present: atraumatic, normocephalic, normal inspection Eye exam: Present: normal appearance, PERRL, EOMI. Absent: scleral icterus, conjunctival injection, periorbital swelling ENT exam: Present: normal exam, mucous membranes moist Neck exam: Present: normal inspection. Absent: tenderness, meningismus, lymphadenopathy Respiratory exam: Present: normal lung sounds bilaterally. Absent: respiratory distress, wheezes, rales, rhonchi, stridor Cardiovascular Exam: Present: regular rate, normal rhythm, normal heart sounds. Absent: systolic murmur, diastolic murmur, rubs, gallop, clicks GI/Abdominal exam: Present: soft, normal bowel sounds, other (Patient has some tenderness to the area of the right pelvis and suprapubic area with some guarding. No rebound or percussion tenderness.). Absent: distended, tenderness, guarding, rebound, rigid External exam: Present: normal external exam Speculum exam: Present: vaginal discharge, cervical discharge, other (Chaperoned by female RN). Absent: erythema, vaginal bleeding, foreign body, tissue By manual exam: Present: normal by manual exam Extremities exam: Present: normal inspection, full ROM, normal capillary refill. Absent: tenderness, pedal edema, joint swelling, calf tenderness Back exam: Present: normal inspection Neurological exam: Present: alert, oriented X3, CN II-XII intact Psychiatric exam: Present: normal affect, normal mood Skin exam: Present: warm, dry, intact, normal color. Absent: rash Course Vital Signs 07/03/21 06:55 Temperature 98.2 F Pulse Rate 109 H Respiratory 16 Rate Blood Pressure 146/88 O2 Sat by Pulse 98 Oximetry - Reevaluation(s) Reevaluation #1: 07/03/21 09:04 Patient reevaluated is resting comfortably in bed. Hemodynamically stable. No vaginal bleeding. Medical Decision Making - Medical Decision Making Differential diagnosis includes spontaneous miscarriage, subchorionic hemorrhage, infectious etiology, unlikely to be ectopic given the fact that the patient is 11 weeks and she previously has had an ultrasound showing an IUP. Neck infection is possible. Plan for diagnostic investigation and reevaluation. Viable intrauterine measuring 11 weeks 3 days, 2.9 cm subchorionic hemorrhage, heart rate 169. Patient was told to return to the ER for any signs or symptoms worsen. Told to return immediately if any other problems arise. All questions answered. Treatment plan discussed. Patient in agreement The case was discussed in detail with ED attending physician. Presentation, findings, treatment plan discussed in detail. Note that the patient received RhoGAM at the previous visit Patient counseled on findings. Patient counseled on restrictions. Advised pelvic rest. - Lab Data Result diagrams: 07/03/21 07:22 07/03/21 07:22 Lab Results 07/03/21 07/03/21 07/03/21 Range/Units 07:22 07:22 07:22 WBC 11.1 H (3.8-10.6) k/uL RBC 4.46 (3.80-5.40) m/uL Hgb 13.6 (11.4-16.0) gm/dL Hct 39.6 (34.0-46.0) % MCV 88.8 (80.0-100.0) fL MCH 30.4 (25.0-35.0) pg MCHC 34.3 (31.0-37.0) g/dL RDW 13.6 (11.5-15.5) % Plt Count 310 (150-450) k/uL MPV 6.8 Neutrophils % 76 % Lymphocytes % 16 % Monocytes % 4 % Eosinophils % 2 % Basophils % 0 % Neutrophils # 8.5 H (1.3-7.7) k/uL Lymphocytes # 1.8 (1.0-4.8) k/uL Monocytes # 0.5 (0-1.0) k/uL Eosinophils # 0.2 (0-0.7) k/uL Basophils # 0.0 (0-0.2) k/uL Sodium 134 L (137-145) mmol/L Potassium 3.8 (3.5-5.1) mmol/L Chloride 102 (98-107) mmol/L Carbon Dioxide 26 (22-30) mmol/L Anion Gap 6 mmol/L BUN 9 (7-17) mg/dL Creatinine 0.52 (0.52-1.04) mg/dL Est GFR (CKD-EPI)AfAm >90 (>60 ml/min/1.73 sqM) Est GFR (CKD-EPI)NonAf >90 (>60 ml/min/1.73 sqM) Glucose 69 L (74-99) mg/dL Calcium 9.3 (8.4-10.2) mg/dL Total Bilirubin 0.5 (0.2-1.3) mg/dL AST 21 (14-36) U/L ALT 17 (4-34) U/L Alkaline Phosphatase 41 (38-126) U/L Total Protein 7.3 (6.3-8.2) g/dL Albumin 4.4 (3.5-5.0) g/dL Urine Color Light Yellow Urine Appearance Clear (Clear) Urine pH 6.5 (5.0-8.0) Ur Specific [place] 1.015 (1.001-1.035) Urine Protein Negative (Negative) Urine Glucose (UA) Negative (Negative) Urine Ketones Negative (Negative) Urine Blood Negative (Negative) Urine Nitrite Negative (Negative) Urine Bilirubin Negative (Negative) Urine Urobilinogen <2.0 (<2.0) mg/dL Ur Leukocyte Esterase Negative (Negative) Trichomonas Ag (Rapid) (Negative) 07/03/21 Range/Units 07:22 WBC (3.8-10.6) k/uL RBC (3.80-5.40) m/uL Hgb (11.4-16.0) gm/dL Hct (34.0-46.0) % MCV (80.0-100.0) fL MCH (25.0-35.0) pg MCHC (31.0-37.0) g/dL RDW (11.5-15.5) % Plt Count (150-450) k/uL MPV Neutrophils % % Lymphocytes % % Monocytes % % Eosinophils % % Basophils % % Neutrophils # (1.3-7.7) k/uL Lymphocytes # (1.0-4.8) k/uL Monocytes # (0-1.0) k/uL Eosinophils # (0-0.7) k/uL Basophils # (0-0.2) k/uL Sodium (137-145) mmol/L Potassium (3.5-5.1) mmol/L Chloride (98-107) mmol/L Carbon Dioxide (22-30) mmol/L Anion Gap mmol/L BUN (7-17) mg/dL Creatinine (0.52-1.04) mg/dL Est GFR (CKD-EPI)AfAm (>60 ml/min/1.73 sqM) Est GFR (CKD-EPI)NonAf (>60 ml/min/1.73 sqM) Glucose (74-99) mg/dL Calcium (8.4-10.2) mg/dL Total Bilirubin (0.2-1.3) mg/dL AST (14-36) U/L ALT (4-34) U/L Alkaline Phosphatase (38-126) U/L Total Protein (6.3-8.2) g/dL Albumin (3.5-5.0) g/dL Urine Color Urine Appearance (Clear) Urine pH (5.0-8.0) Ur Specific [place] (1.001-1.035) Urine Protein (Negative) Urine Glucose (UA) (Negative) Urine Ketones (Negative) Urine Blood (Negative) Urine Nitrite (Negative) Urine Bilirubin (Negative) Urine Urobilinogen (<2.0) mg/dL Ur Leukocyte Esterase (Negative) Trichomonas Ag (Rapid) Negative (Negative) Disposition Clinical Impression: Pelvic pain affecting in first trimester, antepartum, Threatened miscarriage in early , Subchorionic hemorrhage in first trimester Disposition: HOME SELF-CARE Condition: Good Instructions (If sedation given, give patient instructions): Threatened Miscarriage (ED) Additional Instructions: Follow-up with your sky line yarder, Dr. Peace as directed. Follow-up with your regular physician as directed. Return to the ER immediately if any symptoms worsen, new symptoms arise, or any other problems develop. Is patient prescribed a controlled substance at d/c from ED?: No Referrals: Kierra Peace DO [Doctor of Osteopathic Medicine] - 07/06/21 Time of Disposition: 09:06
[2021-07-03 07:40] LABS: Basophils % (A) 0 %; Eosinophils # (A) 0.2 k/uL (0-0.7); Eosinophils % (A) 2 %; HCT 39.6 % (34.0-46.0); HGB 13.6 gm/dL (11.4-16.0); Lymphocytes # (A) 1.8 k/uL (1.0-4.8); Lymphocytes % (A) 16 %; MCH 30.4 pg (25.0-35.0); MCHC 34.3 g/dL (31.0-37.0); MCV 88.8 fL (80.0-100.0); Mean Platelet Volume 6.8; Monocytes # (A) 0.5 k/uL (0-1.0); Monocytes % (A) 4 %; Neutrophils # (A) 8.5 k/uL (1.3-7.7); Neutrophils % (A) 76 %; Platelet Count 310 k/uL (150-450); RBC 4.46 m/uL (3.80-5.40); RDW 13.6 % (11.5-15.5); WBC 11.1 k/uL (3.8-10.6)
[2021-07-03 07:51] LABS: ALT 17 U/L (4-34); AST 21 U/L (14-36); African American GFR (CKD) >90 (>60 ml/min/1.73 sqM); Albumin 4.4 g/dL (3.5-5.0); Alkaline Phosphatase 41 U/L (38-126); Anion Gap 6 mmol/L; Blood Urea Nitrogen 9 mg/dL (7-17); Calcium 9.3 mg/dL (8.4-10.2); Carbon Dioxide 26 mmol/L (22-30); Chloride 102 mmol/L (98-107); Glucose 69 mg/dL (74-99); Non-African American GFR(CKD) >90 (>60 ml/min/1.73 sqM); Potassium 3.8 mmol/L (3.5-5.1); Sodium 134 mmol/L (137-145); Total Bilirubin 0.5 mg/dL (0.2-1.3); Total Protein 7.3 g/dL (6.3-8.2)
[2021-07-03 07:56] LABS: Appearance,Urine Clear (Clear); Bilirubin,Urine Negative (Negative); Blood,Urine Negative (Negative); Color,Urine Light Yellow; Glucose,Urine (UA) Negative (Negative); Ketones,Urine Negative (Negative); Leukocyte Esterase,Urine Negative (Negative); Nitrite,Urine Negative (Negative); PH, Urine 6.5 (5.0-8.0); Protein,Urine Negative (Negative); Specific Gravity,Urine 1.015 (1.001-1.035); Urobilinogen,Urine <2.0 mg/dL (<2.0)
--- NOTE | 2021-07-03 08:52 | US ---
EXAMINATION TYPE: Transabdominal DATE OF EXAM: 07/03/2021 8:18 AM COMPARISON: US 2020 CLINICAL HISTORY: Pelvic pain. Bleeding and pelvic cramping EXAM PERFORMED: Transabdominal (TA) EXAM MEASUREMENTS: GESTATIONAL AGE / DATING Physician Established: Not yet established Dates by LMP: (9 weeks/6 days) EDC: 01/30/2022 Dates by First Scan: (11 weeks/1 days) EDC: 01/21/2022 Dates by Current Scan for: (11 weeks/3 days) EDC: 01/19/2022 MATERNAL ANATOMY Uterus: 9.6 x 7.3 x 9.3cm, anteverted Right Ovary: 3.4 x 1.9 x 1.9cm Left Ovary: 3.2 x 1.2 x 2.6cm Post CDS / Adnexa: wnl Presence of free fluid: no Presence of corpus luteal cyst: right ovary - 2.1cm Presence of subchorionic bleed: right of gestational sac - 2.9 x 1.3 x 1.0cm GESTATION / SURVEY CRL: 4.5cm (11 weeks/3 days) Yolk Sac (normal less than 6mm): not seen Heart Rate: 169 bpm Rhythm: Normal IUP: Viable IUP Date of LMP: Patient unsure Beta HcG (if available): Not available at time of exam Viable single IUP measuring 11 weeks 3 days with a heart rate of 169bpm and an estimated delivery triston e of 01/19/2022, 2.9cm subchorionic bleed seen IMPRESSION: 1.Single viable intrauterine with an estimated age of 11 weeks and 3 days. 2. 2.9 cm subchorionic hemorrhage.
[2021-07-03 09:22] VITALS: BP 119/66; PULSE 72; RESP 18
[2021-07-06 11:45] LABS: Chlamydia trachomatis rRNA Not detected (Not detected); Neisseria gonorrhoeae rRNA Not detected (Not detected)
== END 2021-07-03 09:21 | disposition home or self-care (01) ==
LOC: EC 06:51
DX: O20.0 Threatened abortion (principal); O99.331 Smoking (tobacco) complicating pregnancy, first trimester; F17.200 Nicotine dependence, unspecified, uncomplicated; Z3A.11 11 weeks gestation of pregnancy
CPT/HCPCS: 36415; 76801; 80053; 81003; 84702; 85025; 87491; 87591; 87808; 96360; 99284

== ENCOUNTER 2021-10-10 16:30 | Outpatient (CLI) | payer OTHER, BC ==
[2021-10-10 16:59] LABS: Appearance,Urine Clear (Clear); Bilirubin,Urine Negative (Negative); Blood,Urine Negative (Negative); Color,Urine Yellow; Glucose,Urine (UA) Negative (Negative); Ketones,Urine 4+ (Negative); Leukocyte Esterase,Urine Negative (Negative); Mucus,Urine Many /hpf; Nitrite,Urine Negative (Negative); Protein,Urine 1+ (Negative); RBC,Urine 1 /hpf (0-5); Specific Gravity,Urine 1.038 (1.001-1.035); Squamous Epithelial Cell,Urine 3 /hpf (0-4); WBC,Urine 3 /hpf (0-5)
[2021-10-10] MEDS ORDERED: ONDANSETRON 4 MG/2 ML VIAL IVP STA (17:07)
[2021-10-10] MEDS: LACTATED RINGERS 1,000 ML IV SCH ×3 (17:11→17:52)
[2021-10-10 18:47] VITALS: BP 128/69; PULSE 83; RESP 16; TEMP 98.5
--- NOTE | 2021-10-13 07:44 | P.MSEPDOC ---
Presenting Problems - Arrival Data Date of Arrival on Unit: 10/10/21 Time of Arrival on Unit: 16:38 Mode of Transport: Ambulatory - Complaint OB-Reason for Admission/Chief Complaint: Acute Nausea/Vomiting Comment: pt arrived c/o vomitting and diarrhea since last night and not able to keep anything down Medical History - Information : 2 Para: 1 Term: 1 : 0 Abortions: Spontaneous or Elective: 0 Number of Living Children: 1 - Gestational Age Gestational Age by KEIRA (wks/days): 24 Weeks and 5 Days Review of Systems - Review of Systems Constitutional: No problems Breast: No problems ENT: No problems Cardiovascular: No problems Respiratory: No problems Gastrointestinal: No problems Genitourinary: No problems Musculoskeletal: No problems Neurological: No problems Skin: No problems Vital Signs - Temperature Temperature: 98.5 F Temperature Source: Oral - Pulse Right Brachial Pulse Rate: 83 Pulse Assessment Method: Automatic Cuff - Respirations Respiratory Rate: 16 Oxygen Delivery Method: Room Air O2 Sat by Pulse Oximetry: 97 - Blood Pressure Right Arm Blood Pressure: 128/69 Blood Pressure Mean: 88 Blood Pressure Source: Automatic Cuff Medical Screen Scoring - Cervical Exam Membranes: Intact - Assessment - Baby A Baseline FHR: 150 Heart Rate - NICHD Category: Category I (Normal) Physician Notification - Physician Notified Physician Notified Date: 10/10/21 Physician Notified Time: 16:50 Physician: Dr Danielle Bolden Order Received: Yes - Notification Comment Comment: obtain a clean catch u/a send to lab. ua 4+ ketones. start iv of lr and insue and given zofran 4 mg ivp Maternal Triage Index - Non-Urgent/Priority 4 Non-Urgent Priority 4: Yes Criteria Met for Priority 4: pt 24 5/7 weeks c/o nausea and vomitting and diarrhea since last night Disposition - Disposition OB Disposition: Discharge to home Discharge Date: 10/10/21 Discharge Time: 18:31 I agree with the RN Medical Screening Exam: Yes Case reviewed; plan agreed upon as documented in EMR&OBIX.: Yes Diagnosis: VOMITING OF , UNSPECIFIED
== END 2021-10-10 18:30 | disposition home or self-care (01) ==
LOC: FBPOP 16:30
PROVIDERS: ATTEND Obstetrics & Gynecology
DX: O21.9 Vomiting of pregnancy, unspecified (principal); Z3A.24 24 weeks gestation of pregnancy
CPT/HCPCS: 96361; 96365; 81001; G0463; J2405; 99214

== ENCOUNTER 2021-11-15 08:39 | Outpatient (CLI) | payer OTHER, BC ==
[2021-11-15] MEDS ORDERED: LACTATED RINGERS 1,000 ML IV ONE ×2 (09:15→09:45)
[2021-11-15 09:28] VITALS: BP 125/64; PULSE 85; RESP 18; TEMP 97.4
[2021-11-15] MEDS ORDERED: ONDANSETRON 4 MG/2 ML VIAL IVP STA (09:43)
[2021-11-15 09:46] LABS: Appearance,Urine Cloudy (Clear); Bilirubin,Urine Negative (Negative); Blood,Urine Negative (Negative); Color,Urine Yellow; Glucose,Urine (UA) Negative (Negative); Ketones,Urine Negative (Negative); Leukocyte Esterase,Urine Large (Negative); Mucus,Urine Rare /hpf; Nitrite,Urine Negative (Negative); Protein,Urine Trace (Negative); RBC,Urine 2 /hpf (0-5); Specific Gravity,Urine 1.026 (1.001-1.035); Squamous Epithelial Cell,Urine 10 /hpf (0-4); Urobilinogen,Urine <2.0 mg/dL (<2.0); WBC,Urine 34 /hpf (0-5)
--- NOTE | 2021-11-15 10:34 | P.MSEPDOC ---
Presenting Problems - Arrival Data Date of Arrival on Unit: 11/15/21 Time of Arrival on Unit: 08:39 Mode of Transport: Ambulatory - Complaint OB-Reason for Admission/Chief Complaint: Possible Onset of Labor Comment: cramping Medical History - Information : 2 Para: 1 Term: 1 : 0 Abortions: Spontaneous or Elective: 0 Number of Living Children: 1 - Gestational Age Gestational Age by KEIRA (wks/days): 29 Weeks and 6 Days Review of Systems - Review of Systems Constitutional: No problems Breast: No problems ENT: No problems Cardiovascular: No problems Respiratory: No problems Gastrointestinal: No problems Genitourinary: No problems Musculoskeletal: No problems Neurological: No problems Skin: No problems Vital Signs - Temperature Temperature: 97.4 F Temperature Source: Temporal Artery Scan - Pulse Right Pulse Rate: 85 Pulse Assessment Method: Pulse Oximetry - Respirations Respiratory Rate: 18 Oxygen Delivery Method: Room Air O2 Sat by Pulse Oximetry: 99 - Blood Pressure Right Arm Blood Pressure: 125/64 Blood Pressure Mean: 84 Blood Pressure Source: Automatic Cuff Medical Screen Scoring - Uterine Contractions Intensity: Mild Resting: Soft to palpation - Assessment - Baby A Baseline FHR: 130 Heart Rate - NICHD Category: Category I (Normal) NST: Reactive Physician Notification - Physician Notified Physician Notified Date: 11/15/21 Physician Notified Time: 09:00 Physician: Kierra Peace New Order Received: Yes (IV hydration, cervical exam, UA.) Maternal Triage Index - Maternal Triage Index Presenting for scheduled procedure w/no complaint: No - Stat/Priority 1 Stat Priority 1: No - Urgent/Priority 2 Urgent Priority 2: Yes Provider Notified: Kierra Peace Provider Notified Time: 09:00 Criteria Met for Priority 2: pt presents with c/o cramping/contractions since 1700 last night. Disposition - Disposition OB Disposition: Triage I agree with the RN Medical Screening Exam: Yes Case reviewed; plan agreed upon as documented in EMR&OBIX.: Yes Diagnosis: DEHYDRATION
== END 2021-11-15 10:55 | disposition home or self-care (01) ==
LOC: FBPOP 08:39
PROVIDERS: ATTEND Obstetrics & Gynecology
DX: O99.282 Endocrine, nutritional and metabolic diseases complicating pregnancy, second trimester (principal); Z3A.29 29 weeks gestation of pregnancy
CPT/HCPCS: 59025; 96361; 96374; 81001; G0463; J2405; 99214

== ENCOUNTER 2021-12-21 14:03 | Outpatient (CLI) | payer BC, OTHER ==
[2021-12-21] MEDS: LACTATED RINGERS 1,000 ML IV SCH ×2 (15:02→15:24)
[2021-12-21 17:22] VITALS: BP 125/74; PULSE 75; RESP 16; TEMP 98.5
--- NOTE | 2021-12-23 08:53 | P.MSEPDOC ---
Presenting Problems - Arrival Data Date of Arrival on Unit: 12/21/21 Time of Arrival on Unit: 14:03 Mode of Transport: Ambulatory - Complaint OB-Reason for Admission/Chief Complaint: Acute Nausea/Vomiting, Headache, Dizziness Comment: Pt arrives to triage c/o headache, nausea/vomitting, blurred vision cramping Medical History - Information : 2 Para: 1 Term: 1 Number of Living Children: 1 - Gestational Age Gestational Age by KEIRA (wks/days): 35 Weeks and 0 Days Review of Systems - Review of Systems Constitutional: No problems Breast: No problems ENT: No problems Cardiovascular: No problems Respiratory: No problems Gastrointestinal: No problems Genitourinary: No problems Musculoskeletal: No problems Neurological: No problems Skin: No problems Vital Signs - Temperature Temperature: 98.5 F Temperature Source: Temporal Artery Scan - Pulse Right Sitting Brachial Pulse Rate: 75 Pulse Assessment Method: Automatic Cuff - Respirations Respiratory Rate: 16 Oxygen Delivery Method: Room Air O2 Sat by Pulse Oximetry: 99 - Blood Pressure Right Arm Sitting Blood Pressure: 125/74 Blood Pressure Mean: 91 Blood Pressure Source: Automatic Cuff Medical Screen Scoring - Cervical Exam Dilation (cm): 0 Effacement (%): 50 - Uterine Contractions Frequency From (mins): 2 Frequency To (mins): 3 Duration From (seconds): 40 Duration To (seconds): 50 Intensity: Mild Resting: Soft to palpation - Assessment - Baby A Baseline FHR: 135 Heart Rate - NICHD Category: Category I (Normal) NST: Reactive Physician Notification - Physician Notified Physician Notified Date: 12/21/21 Physician Notified Time: 17:00 Physician: Kierra Peace New Order Received: Yes - Notification Comment Comment: Dr. Peace called at office, report given on maternal and status,. complaints of KILPATRICK, blurred vision, N/V, and cramping x3days. BP 125/74, SVE closed/50/-2. Orders to start IV and give 2L bolus of LR. -Bolus administered; pt continues to contract q2-3min, states no change in symptomes. Ordered COVID and Influenza swab. -COVID and Influenza negative. Order rec'd to discharge home. Maternal Triage Index - Maternal Triage Index Presenting for scheduled procedure w/no complaint: No - Stat/Priority 1 Stat Priority 1: No - Urgent/Priority 2 Urgent Priority 2: Yes Provider Notified: Kierra Peace Provider Notified Time: 17:00 Criteria Met for Priority 2: KILPATRICK, blurred vision, nausea/vomitting, cramping Disposition - Disposition OB Disposition: Discharge to home, Written follow up instructions reviewed Discharge Date: 12/21/21 Discharge Time: 15:10 I agree with the RN Medical Screening Exam: Yes Case reviewed; plan agreed upon as documented in EMR&OBIX.: Yes Diagnosis: HEADACHE, UNSPECIFIED
== END 2021-12-21 17:10 | disposition home or self-care (01) ==
LOC: FBPOP 14:03
PROVIDERS: ATTEND Obstetrics & Gynecology
DX: O26.893 Other specified pregnancy related conditions, third trimester (principal); Z3A.35 35 weeks gestation of pregnancy
CPT/HCPCS: 59025; 87502; 87635; 96360; 96361; 99215

== ENCOUNTER 2022-01-12 23:21 | Outpatient (CLI) | payer BC, OTHER ==
[2022-01-13 02:17] VITALS: BP 137/85; PULSE 90; RESP 16; TEMP 98.2
--- NOTE | 2022-01-26 08:30 | P.MSEPDOC ---
Presenting Problems - Arrival Data Date of Arrival on Unit: 01/12/22 Time of Arrival on Unit: 23:21 Mode of Transport: Ambulatory - Complaint OB-Reason for Admission/Chief Complaint: Possible Onset of Labor, Vaginal Bleeding Comment: Pt states that she has had bleeding and irregular cramping that started at 1630. Medical History - Information : 2 Para: 1 Term: 1 : 0 Abortions: Spontaneous or Elective: 0 Number of Living Children: 1 - Gestational Age Gestational Age by KEIRA (wks/days): 38 Weeks and 2 Days Review of Systems - Review of Systems Constitutional: No problems Breast: No problems ENT: No problems Cardiovascular: No problems Respiratory: No problems Gastrointestinal: No problems Genitourinary: No problems Musculoskeletal: No problems Neurological: No problems Skin: No problems Vital Signs - Temperature Temperature: 98.2 F Temperature Source: Oral - Pulse Right Pulse Oximetery Pulse Rate: 90 Pulse Assessment Method: Pulse Oximetry - Respirations Respiratory Rate: 16 Oxygen Delivery Method: Room Air O2 Sat by Pulse Oximetry: 97 - Blood Pressure Right Arm Blood Pressure: 137/85 Blood Pressure Mean: 102 Blood Pressure Source: Automatic Cuff Medical Screen Scoring - Cervical Exam Dilation (cm): 2 Effacement (%): 50 Station: -2 Membranes: Intact - Uterine Contractions Intensity: Mild Resting: Soft to palpation - Assessment - Baby A Baseline FHR: 115 Heart Rate - NICHD Category: Category II (Indeterminate) NST: Reactive Physician Notification - Physician Notified Physician Notified Date: 01/13/22 Physician Notified Time: 00:50 Physician: Kierra Peace New Order Received: Yes - Notification Comment Comment: 01/13/22 @ 0007: RN reported to Dr. Peace on maternal/ status, UC pattern, NST reactive,. category 1 FHTs, cervical exam. Pt presents with c/o dionna red vaginal bleeding and cramping that started at. 1630 today. Pt states it was present in her underwear and when she wiped. Denies. bleeding on arrival to triage, no blood in underwear at this time. Pt was seen in the. office today, dilated 1.5/70% per Dr. Peace. Pt denies SROM, intercourse, and. complications during . Pt did state that she had a sub-chorionic bleed during. early . RN to re-check pt's cervix an hour post initial cervical. exam. If pt's cervix is unchanged, she may DC home. 01/13/22 @ 0050: RN called and reported to Dr. Peace; cervix unchanged, FHTs have had. intermittent subtle dips in basleine for 2-4 mins between 100-120bpm with minimal. variability. RN may monitor for an additional hour, and pt may DC home if no concerns. with FHTs. Maternal Triage Index - Maternal Triage Index Presenting for scheduled procedure w/no complaint: No - Stat/Priority 1 Stat Priority 1: No - Urgent/Priority 2 Urgent Priority 2: No - Prompt/Priority 3 Prompt Priority 3: No - Non-Urgent/Priority 4 Non-Urgent Priority 4: Yes Criteria Met for Priority 4: Early labor signs including vaginal bloody show and cramping. Disposition - Disposition OB Disposition: Discharge to home Discharge Date: 01/13/22 Discharge Time: 02:00 I agree with the RN Medical Screening Exam: Yes Case reviewed; plan agreed upon as documented in EMR&OBIX.: Yes Diagnosis: PRIMARY INADEQUATE CONTRACTIONS
== END 2022-01-13 02:00 | disposition home or self-care (01) ==
LOC: FBPOP 23:21
PROVIDERS: ATTEND Obstetrics & Gynecology
DX: O47.1 False labor at or after 37 completed weeks of gestation (principal); Z3A.38 38 weeks gestation of pregnancy
CPT/HCPCS: 59025; 99213

== ENCOUNTER 2022-01-17 15:30 | Inpatient (IN) | payer BC, OTHER ==
[2022-01-17] MEDS ORDERED: OXYTOCIN 10 UNIT/ML 1 ML VIAL IM PRN (15:44)
[2022-01-17] MEDS ORDERED: METHYLERGONOVINE 0.2 MG/ML 1 ML AMP IM PRN (15:44)
[2022-01-17] MEDS ORDERED: TERBUTALINE 1 MG/ML VIAL SQ PRN (15:44)
[2022-01-17] MEDS ORDERED: LIDOCAINE 0.5% (PF) 5 MG/ML (50 ML SDV) SQ PRN (15:44)
[2022-01-17] MEDS ORDERED: CARBOPROST TROMETHAMINE 250 MCG/ML 1 ML AMP IM PRN (15:44)
[2022-01-17] MEDS ORDERED: OXYTOCIN 30 UNITS/500 ML NS 30 UNIT in SALINE 1 500ML.BAG IV SCH ×2 (15:45→18:00)
[2022-01-17 16:06] LABS: Basophils # (A) 0.1 k/uL (0-0.2); Basophils % (A) 0 %; Eosinophils # (A) 0.2 k/uL (0-0.7); Eosinophils % (A) 1 %; HCT 40.4 % (34.0-46.0); HGB 13.2 gm/dL (11.4-16.0); Lymphocytes % (A) 9 %; MCH 28.1 pg (25.0-35.0); MCHC 32.6 g/dL (31.0-37.0); MCV 86.2 fL (80.0-100.0); Mean Platelet Volume 7.6; Monocytes # (A) 1.1 k/uL (0-1.0); Monocytes % (A) 5 %; Neutrophils # (A) 17.8 k/uL (1.3-7.7); Neutrophils % (A) 83 %; Platelet Count 357 k/uL (150-450); RBC 4.69 m/uL (3.80-5.40); RDW 12.7 % (11.5-15.5); WBC 21.3 k/uL (3.8-10.6)
[2022-01-17] MEDS: LACTATED RINGERS 1,000 ML IV SCH ×2 (16:16→16:23)
[2022-01-17] MEDS ORDERED: ROPIVACAINE 5MG/ML 20ML VIAL ONE (16:29)
[2022-01-17] MEDS ORDERED: fentaNYL (PF) 50 MCG/ML 5 ML AMP ONE (16:29)
[2022-01-17] MEDS ORDERED: SODIUM CHLORIDE 0.9% 100 ML BAG ONE (16:29)
[2022-01-17] MEDS ORDERED: AMPICILLIN 2,000 MG in SODIUM CHLORIDE 0.9% 100 ML IVPB STA (16:42)
--- NOTE | 2022-01-17 17:00 | P.HPOB ---
History of Present Illness H&P Date: 01/17/22 Chief Complaint: Contractions. This patient is a pleasant 26-year-old 2 para 1 female estimated confinement 01/25/2022 estimated gestational age 38-6/7 weeks who presents to labor and delivery with complaints of contractions. Patient states she's began about 1:00 this morning. Cervix on presentation is 7 cm dilated and patient's found to be in active labor. care is per Dr. Peace it appears to be uncomplicated. Review of Systems Genitourinary: Reports Menstruation: Reports amenorrhea Past Medical History Past Medical History: No Reported History History of Any Multi-Drug Resistant Organisms: None Reported Past Surgical History: Ear Surgery Past Anesthesia/Blood Transfusion Reactions: No Reported Reaction, Motion Sickness Past Psychological History: No Psychological Hx Reported Smoking Status: Never smoker Past Alcohol Use History: None Reported Past Drug Use History: None Reported - Past Family History Father Family Medical History: Unable to Obtain Additional Family Medical History / Comment(s): Patient was adopted, family hx unknown. Medications and Allergies Home Medications Medication Instructions Recorded Confirmed Type Pnv 11/Iron Fum/Folic Acid/Om3 1 each PO DAILY 11/15/21 01/17/22 History [Virt-Roderick Dha Softgel] Allergies Allergy/AdvReac Type Severity Reaction Status Date / Time No Known Allergies Allergy Verified 01/17/22 15:43 Exam Intake and Output 01/17/22 01/17/22 01/17/22 06:59 14:59 22:59 Other: Weight 82.1 kg - OBG Physical Exam Abdomen: bowel sounds normal, no diffuse tenderness, no bruit present, no guarding noted, no hepatomegaly, no splenomegaly, no mass Vulva: both: normal Vagina: normal moisture, no discharge Cervix: no lesion (Cervix is 9 cm dilated 90% effaced -1 station), no discharge Uterus: enlarged (Fundal height consistent with dates) Results blood work shows she is B negative, rubella immune, RPR nonreactive, hepatitis B negative, HIV is nonreactive, Glucola was normal, B strep was negative. She did receive RhoGAM on November 02. Most recent ultrasound at 35 weeks but the estimated weight at 6 pounds which is the 50th percentile. Result Diagrams: 01/17/22 15:55 Abnormal Lab Results - Last 24 Hours (Table) 01/17/22 Range/Units 15:55 WBC 21.3 H (3.8-10.6) k/uL Neutrophils # 17.8 H (1.3-7.7) k/uL Monocytes # 1.1 H (0-1.0) k/uL Assessment and Plan Assessment: This is a pleasant 26-year-old 2 para 1 female 38-6/7 weeks gestation admitted to labor and delivery in active labor. Patient does have a mild leukocytosis with a white count of 21.6 however is afebrile. Although her group B strep is negative underwent a prophylactically give her a dose of ampicillin for this. Patient's Epidural for pain control and we now anticipate vaginal delivery. (1) 38 weeks gestation of Current Visit: Yes Status: Acute Code(s): Z3A.38 - 38 WEEKS GESTATION OF WA MELINA SNOMED Code(s): 63595280 (2) Normal labor Current Visit: Yes Status: Acute Code(s): O80 - ENCOUNTER FOR FULL-TERM UNCOMPLICATED DELIVERY; Z37.9 - OUTCOME OF DELIVERY, UNSPECIFIED SNOMED Code(s): 72239380 (3) Rh negative status during Current Visit: Yes Status: Acute Code(s): O26.899 - OTH RELATED CONDITIONS, UNSPECIFIED TRIMESTER; Z67.91 - UNSPECIFIED BLOOD TYPE, RH NEGATIVE SNOMED Code(s): 709551117
--- NOTE | 2022-01-17 17:53 | P.PROBDLV ---
Vaginal Delivery Note - . Vaginal Delivery Note: Normal spontaneous vaginal delivery viable female infant Apgars 8 and 9 delivery time is 1732 hrs. Please see dictated H&P for intimate details of this patient's admission. Brief summary is a pleasant 26-year-old 2 para 1 female 38-6/7 weeks admitted to labor and delivery with complaints of contractions. On admission patient's found to be 7 cm dilated active labor. She did have an elevated white count without any other symptomatology including fever sided give her 1 dose of ampicillin. Patient had epidural placed with good relief. She has artificial rupture membranes at 9 cm dilated for clear fluid. Labor thereafter progresses quickly. She pushes a proximally 3 times pushes the head to the perineum. Posterior perineum is supported we have controlled delivery of infant's head over the intact perineum. Infant is right occiput anterior presentation. Mouth and nares are bulb suctioned. There is no evidence of nuchal cord. With gentle downward traction we then have delivery the anterior and posterior shoulder and the rest this infant's body. This is a vigorous viable female Apgars are 8 and 9 delivery time is 1732 hrs. After delivery of the infant the infant is placed on the mother's abdomen. After the umbilical cord is done pulsating is doubly clamped and cut. It appears to be trivascular. Placenta is then spontaneously delivered intact. Estimated blood loss is approximately 150 mL. There is a left labial laceration that doesn't require reapproximation with a 4- 0 Vicryl. Excellent reapproximation is noted. All counts are correct 3. There are no complications. and mother stable in delivery room.
[2022-01-17] MEDS ORDERED: diphenhydrAMINE 50 MG/ML 1 ML VIAL IVP PRN (17:54)
[2022-01-17] MEDS ORDERED: BENZOCAINE/MENTHOL SPRAY 1 GM/SPRAY AEROSOL TOPICAL PRN (17:54)
[2022-01-17] MEDS ORDERED: ZOLPIDEM 5 MG TAB PO PRN (17:54)
[2022-01-17] MEDS ORDERED: Rhogam IMMUNE GLOBULIN 1,500 UNIT/1 ML IM ONE (17:54)
[2022-01-17] MEDS ORDERED: SIMETHICONE 80 MG CHEWABLE PO PRN (17:54)
[2022-01-17] MEDS ORDERED: LANOLIN CREAM 5 GM TUBE TOPICAL PRN (17:54)
[2022-01-17] MEDS ORDERED: IBUPROFEN 600 MG TAB PO PRN (17:54)
[2022-01-17] MEDS ORDERED: ACETAMINOPHEN TAB 325 MG TAB PO PRN (17:54)
[2022-01-17] MEDS ORDERED: diphenhydrAMINE 25 MG CAP PO PRN (17:54)
[2022-01-17] MEDS ORDERED: HYDROCORTISONE 2.5% RECTAL CREAM 30 GM TUBE RECTAL PRN (17:54)
--- NOTE | 2022-01-17 18:04 | P.MSEPDOC ---
Presenting Problems - Arrival Data Date of Arrival on Unit: 01/17/22 Time of Arrival on Unit: 15:40 Mode of Transport: Wheelchair - Complaint OB-Reason for Admission/Chief Complaint: Possible Onset of Labor Medical History - Information : 2 Para: 1 Term: 1 : 0 Abortions: Spontaneous or Elective: 0 Number of Living Children: 1 - Gestational Age Gestational Age by KEIRA (wks/days): 38 Weeks and 6 Days Review of Systems - Review of Systems Constitutional: No problems Breast: No problems ENT: No problems Cardiovascular: No problems Respiratory: No problems Gastrointestinal: No problems Genitourinary: No problems Musculoskeletal: No problems Neurological: No problems Skin: No problems Vital Signs - Temperature Temperature: 97.8 F Temperature Source: Axillary - Pulse Right Pulse Rate: 88 Pulse Assessment Method: Automatic Cuff - Respirations Respiratory Rate: 18 Oxygen Delivery Method: Room Air O2 Sat by Pulse Oximetry: 97 Medical Screen Scoring - Cervical Exam Dilation (cm): 7 Effacement (%): 80 Station: -1 Membranes: Intact - Uterine Contractions Frequency From (mins): 1 Frequency To (mins): 3 Duration From (seconds): 60 Duration To (seconds): 70 Intensity: Strong Resting: Soft to palpation - Assessment - Baby A Baseline FHR: 120 Heart Rate - NICHD Category: Category I (Normal) NST: Reactive Maternal Triage Index - Maternal Triage Index Presenting for scheduled procedure w/no complaint: No - Stat/Priority 1 Stat Priority 1: No - Urgent/Priority 2 Urgent Priority 2: Yes Provider Notified: Levon Ochoa Provider Notified Time: 15:40 Criteria Met for Priority 2: admit Disposition - Disposition OB Disposition: Admit I agree with the RN Medical Screening Exam: Yes Case reviewed; plan agreed upon as documented in EMR&OBIX.: Yes Diagnosis: ENCOUNTER FOR FULL-TERM UNCOMPLICATED DELIVERY
[2022-01-17] MEDS: SENNOSIDES-DOCUSATE SODIUM 1 EACH TAB PO SCH (20:36)
--- NOTE | 2022-01-18 06:18 | P.PNOBGVD ---
Subjective - Subjective Patient reports: Reports appetite normal, Reports voiding normally, Reports pain well controlled, Reports ambulating normally : doing well Objective - Latest Vital Signs Latest vital signs: Vital Signs Temp Pulse Resp BP Pulse Ox 01/18/22 04:00 98.4 F 88 14 121/71 98 01/18/22 00:00 98.5 F 86 16 119/77 98 01/17/22 19:45 99.2 F 100 16 128/76 99 01/17/22 19:15 98.4 F 96 16 117/71 99 01/17/22 18:45 91 16 122/67 01/17/22 18:30 92 16 116/60 01/17/22 18:15 101 H 16 117/69 01/17/22 18:04 97.8 F 88 18 97 01/17/22 18:00 106 H 16 125/76 01/17/22 17:45 97.9 F 109 H 16 130/73 01/17/22 15:43 97.8 F 88 18 97 Intake and Output 01/17/22 01/17/22 01/18/22 14:59 22:59 06:59 Intake Total 155.867 Output Total 1010 Balance -854.133 Intake: Intake, IV Titration 155.867 Amount Oxytocin 30 Units/500 ml 155.867 Ns 30 unit In Saline 1 500ml.bag @ Per Protocol IV .Q0M [facility] Rx#:[id number] Output: Urine 750 Output, Quantitative 260 Blood Loss Other: Weight 82.1 kg - Exam Lungs: bilateral: normal Chest: Normal S1, Normal S2 Extremities: Present: normal Abdomen: Present: normal appearance, soft Uterus: Present: normal, firm - Labs Labs: Abnormal Lab Results - Last 24 Hours (Table) 01/17/22 Range/Units 15:55 WBC 21.3 H (3.8-10.6) k/uL Neutrophils # 17.8 H (1.3-7.7) k/uL Monocytes # 1.1 H (0-1.0) k/uL Assessment and Plan Assessment: day #1. Patient is resting without complaints and wishes to go home. Vital signs are stable she's afebrile. Uterus is firm nontender and she is having normal lochia. CBC is pending at time of this dictation. My impression this is a normal course. Plan is to continue routine care, check CBC, and discharge home later tonight. (1) 38 weeks gestation of Current Visit: Yes Status: Acute Code(s): Z3A.38 - 38 WEEKS GESTATION OF SNOMED Code(s): 59266606 (2) Normal labor Current Visit: Yes Status: Acute Code(s): O80 - ENCOUNTER FOR FULL-TERM UNCOMPLICATED DELIVERY; Z37.9 - OUTCOME OF DELIVERY, UNSPECIFIED SNOMED Code(s): 67413470 (3) Rh negative status during Current Visit: Yes Status: Acute Code(s): O26.899 - OTH RELATED CONDITIONS, UNSPECIFIED TRIMESTER; Z67.91 - UNSPECIFIED BLOOD TYPE, RH NEGATIVE SNOMED Code(s): 014035957
--- NOTE | 2022-01-18 06:22 | P.DS ---
Providers Date of admission: 01/17/22 15:55 Expected date of discharge: 01/18/22 Attending physician: Levon Ochoa Primary care physician: Stated None - Discharge Diagnosis(es) (1) 38 weeks gestation of Current Visit: Yes Status: Acute (2) Normal labor Current Visit: Yes Status: Acute (3) Rh negative status during Current Visit: Yes Status: Acute Hospital Course: Please see dictated H&P for intimate details of this patient's admission. Brief summary this is a pleasant 26-year-old 2 para 1 female 38-6/7 weeks gestation admitted to labor and delivery in active labor. Patient quickly goes on to have a vaginal delivery viable female infant. Please see dictated delivery note. day 1 patient's feeling well wishes to go home. Patient's felt be stable for discharge home follow up with Dr. Peace and 6 weeks. Procedures: Normal spontaneous vaginal delivery Patient Condition at Discharge: Good Plan - Discharge Summary New Discharge Prescriptions: New Ibuprofen [Motrin] 600 mg PO Q6HR PRN #30 tab PRN Reason: Mild Pain (Scale 1 To 3) No Action Pnv 11/Iron Fum/Folic Acid/Om3 [Virt-Roderick Dha Softgel] 1 each PO DAILY Discharge Medication List Pnv 11/Iron Fum/Folic Acid/Om3 [Virt-Roderick Dha Softgel] 1 each PO DAILY 11/15/21 [History] Ibuprofen [Motrin] 600 mg PO Q6HR PRN #30 tab 01/18/22 [Rx] Follow up Appointment(s)/Referral(s): Kierra Peace DO [Doctor of Osteopathic Medicine] - 6 Weeks Patient Instructions/Handouts: Vaginal Delivery (DC) Activity/Diet/Wound Care/Special Instructions: No intercourse or anything per vagina for 6 weeks. Please call if any fever, chills, excessive vaginal bleeding, and/or abdominal pain. Discharge Disposition: HOME SELF-CARE
[2022-01-18 06:33] LABS: Basophils # (A) 0.1 k/uL (0-0.2); Basophils % (A) 0 %; Eosinophils # (A) 0.2 k/uL (0-0.7); Eosinophils % (A) 1 %; HCT 37.4 % (34.0-46.0); HGB 12.8 gm/dL (11.4-16.0); Lymphocytes # (A) 2.5 k/uL (1.0-4.8); Lymphocytes % (A) 15 %; MCHC 34.3 g/dL (31.0-37.0); MCV 87.6 fL (80.0-100.0); Mean Platelet Volume 7.5; Monocytes # (A) 0.8 k/uL (0-1.0); Monocytes % (A) 5 %; Neutrophils # (A) 13.3 k/uL (1.3-7.7); Neutrophils % (A) 78 %; Platelet Count 367 k/uL (150-450); RBC 4.27 m/uL (3.80-5.40); RDW 13.2 % (11.5-15.5); WBC 17.1 k/uL (3.8-10.6)
[2022-01-18 07:56] VITALS: RESP 16
[2022-01-18] MEDS: SENNOSIDES-DOCUSATE SODIUM 1 EACH TAB PO SCH (07:59)
[2022-01-18 15:52] VITALS: BP 120/78; PULSE 79; TEMP 98
== END 2022-01-18 19:18 | disposition home or self-care (01) | DRG 807 ==
LOC: FBPOP 15:30 → 4FBP 15:55
PROVIDERS: ADMIT Obstetrics & Gynecology; ATTEND Obstetrics & Gynecology
PROC: 00HU33Z Insertion of Infusion Device into Spinal Canal, Percutaneous Approach (ICD-10-PCS; principal; 2022-01-17)
PROC: 0HQ9XZZ Repair Perineum Skin, External Approach (ICD-10-PCS; principal; 2022-01-17)
PROC: 10E0XZZ Delivery of Products of Conception, External Approach (ICD-10-PCS; principal; 2022-01-17)
PROC: 10907ZC Drainage of Amniotic Fluid, Therapeutic from Products of Conception, Via Natural or Artificial Opening (ICD-10-PCS; principal; 2022-01-17)
PROC: 3E0R3NZ Introduction of Analgesics, Hypnotics, Sedatives into Spinal Canal, Percutaneous Approach (ICD-10-PCS; principal; 2022-01-17)
PROC: 3E0334Z Introduction of Serum, Toxoid and Vaccine into Peripheral Vein, Percutaneous Approach (ICD-10-PCS; 2022-01-17)
DX: O99.12 Other diseases of the blood and blood-forming organs and certain disorders involving the immune mechanism complicating childbirth (principal); Z37.0 Single live birth; D72.829 Elevated white blood cell count, unspecified; O26.893 Other specified pregnancy related conditions, third trimester; Z67.91 Unspecified blood type, Rh negative; Z3A.38 38 weeks gestation of pregnancy; O70.0 First degree perineal laceration during delivery; Z28.310 Unvaccinated for COVID-19
CPT/HCPCS: 59025; 85025; 85461; 86850; 86900; 86901; 99213

== ENCOUNTER 2022-03-24 18:10 | Emergency (ER) | payer BC, OTHER ==
[2022-03-24 18:32] VITALS: BP 146/83; PULSE 78; RESP 16; TEMP 98.4
--- NOTE | 2022-03-24 22:09 | ED ---
Skin/Abscess/FB HPI - General Chief complaint: Skin/Abscess/Foreign Body Stated complaint: lump in genital area Time Seen by Provider: 03/24/22 21:49 Source: patient Mode of arrival: ambulatory Limitations: no limitations - History of Present Illness Initial comments: This patient is 26-year-old woman who presents with complaint that she has experienced a perianal swelling, pain and tenderness. She states it had come on over the past few days. She states that prior to coming in today she started having some drainage from the area of the swelling. She notes that drainage was thick, white, foul-smelling. She does bring photograph on the cell phone. Patient denies any systemic symptoms, no fever or chills, chest pain, dyspnea, tachycardia palpitations. MD complaint: abscess/boil -: days(s) Tetanus Up to Date: yes Location: buttocks Severity: moderate Quality: sharp Consistency: constant Improves with: none Worsens with: none Context: none Associated symptoms: denies other symptoms - Related Data Home Medications Medication Instructions Recorded Confirmed Pnv 11/Iron Fum/Folic Acid/Om3 1 each PO DAILY 11/15/21 01/17/22 [Virt-Roderick Dha Softgel] Previous Rx's Medication Instructions Recorded Ibuprofen [Motrin] 600 mg PO Q6HR PRN #30 tab 01/18/22 Sulfamethox-Tmp 800-160Mg [Bactrim 1 each PO Q12HR #14 tab 03/24/22 Ds] Allergies Allergy/AdvReac Type Severity Reaction Status Date / Time No Known Allergies Allergy Verified 03/24/22 18:32 Review of Systems ROS Statement: Those systems with pertinent positive or pertinent negative responses have been documented in the HPI. ROS Other: All systems not noted in ROS Statement are negative. Constitutional: Denies: fever, chills Respiratory: Denies: cough, dyspnea Cardiovascular: Denies: chest pain, palpitations Gastrointestinal: Denies: abdominal pain, diarrhea, constipation Genitourinary: Denies: dysuria, hematuria Skin: Reports: as per HPI Hematological/Lymphatic: Denies: easy bleeding Past Medical History Past Medical History: No Reported History History of Any Multi-Drug Resistant Organisms: None Reported Past Surgical History: Ear Surgery Past Anesthesia/Blood Transfusion Reactions: No Reported Reaction, Motion Sickness Past Psychological History: No Psychological Hx Reported Smoking Status: Never smoker Past Alcohol Use History: None Reported Past Drug Use History: None Reported - Past Family History Father Family Medical History: Unable to Obtain Additional Family Medical History / Comment(s): Patient was adopted, family hx unknown. General Exam Limitations: no limitations General appearance: alert, in no apparent distress Respiratory exam: Present: normal lung sounds bilaterally. Absent: respiratory distress, wheezes, rales, rhonchi, stridor Cardiovascular Exam: Present: regular rate, normal rhythm, normal heart sounds. Absent: systolic murmur, diastolic murmur, rubs, gallop Rectal exam: Present: hemorrhoids, tenderness, other (There is an external hemorrhoid which the patient indicates as the area of pain/tenderness/swelling. There is a small ulceration to the hemorrhoid and a trace amount of pus draining) Skin exam: Present: warm, dry, other (See above) Course Vital Signs 03/24/22 18:29 Temperature 98.4 F Pulse Rate 78 Respiratory 16 Rate Blood Pressure 146/83 O2 Sat by Pulse 98 Oximetry Procedures - Incision & Drainage Consent Obtained: verbal consent Site: buttock Anesthetic Used: lidocaine 1% I&D Cleaning Method: Alcohol Wipe Scalpel Used: #11 I&D Drainage Obtained: Pus, Blood Patient Tolerated Procedure: well, no complications Medical Decision Making - Medical Decision Making Patient is 26-year-old woman complaining of swollen, painful, tender perianal lesion. There is a hemorrhoid at the site of pain. There is already drainage occurring, however after discussion of risks, benefits, indications, patient does agree to have the hemorrhoid neck with a scalpel To facilitate drainage. I did inject 1% lidocaine and then nicked the hemorrhoid with an 11 scalpel. There does not appear to be any evidence of extension up toward the rectum. Discussed further follow-up as well as return parameters. Disposition Clinical Impression: Abscess Disposition: HOME SELF-CARE Condition: Good Instructions (If sedation given, give patient instructions): Abscess Incision and Drainage (ED), Abscess (ED) Prescriptions: Sulfamethox-Tmp 800-160Mg [Bactrim Ds] 1 each PO Q12HR #14 tab Is patient prescribed a controlled substance at d/c from ED?: No Referrals: Joel Sainz Jr, [Primary Care Provider] - 1-2 days Fran Velasquez MD [Medical Doctor] - 1-2 days
[2022-03-24] MEDS ORDERED: LIDOCAINE 1% INJ 10MG/ML (20 ML MDV) SQ STA (22:10)
[2022-03-24] MEDS ORDERED: SULFAMETHOX-TMP 800-160MG 1 EACH TAB PO STA (22:22)
== END 2022-03-24 22:37 | disposition home or self-care (01) ==
LOC: EC 18:10
DX: L02.215 Cutaneous abscess of perineum (principal)
CPT/HCPCS: 10060; 99282; J2001

== ENCOUNTER 2024-11-17 19:26 | Outpatient (CLI) | payer BC, OTHER ==
[2024-11-17] MEDS: LACTATED RINGERS 1,000 ML IV ONE (20:03)
[2024-11-17 20:25] LABS: Appearance,Urine Clear (Clear); Bilirubin,Urine Negative (Negative); Blood,Urine Negative (Negative); Color,Urine Colorless; Glucose,Urine (UA) Negative (Negative); Ketones,Urine 1+ (Negative); Leukocyte Esterase,Urine Negative (Negative); Nitrite,Urine Negative (Negative); PH, Urine 6.5 (5.0-8.0); Protein,Urine Negative (Negative); Specific Gravity,Urine 1.008 (1.001-1.035); Urobilinogen,Urine <2.0 mg/dL (<2.0)
[2024-11-17 21:19] VITALS: BP 139/76; PULSE 82; RESP 16; TEMP 98.6
--- NOTE | 2024-12-07 15:08 | P.MSEPDOC ---
Presenting Problems - Arrival Data Date of Arrival on Unit: 11/17/24 Time of Arrival on Unit: 19:26 Mode of Transport: Wheelchair - Complaint OB-Reason for Admission/Chief Complaint: Pain Comment: cramping rated 810 Medical History - Information : 3 Para: 2 Term: 2 : 0 Abortions: Spontaneous or Elective: 0 Number of Living Children: 2 - Gestational Age Gestational Age by KEIRA (wks/days): 29 Weeks and 1 Days - History Complications: Placenta Previa Review of Systems - Review of Systems Constitutional: No problems Breast: No problems ENT: No problems Cardiovascular: No problems Respiratory: No problems Gastrointestinal: No problems Genitourinary: No problems Musculoskeletal: No problems Neurological: No problems Skin: No problems Vital Signs - Temperature Temperature: 98.6 F Temperature Source: Temporal Artery Scan - Pulse Pulse Oximetery Pulse Rate: 82 Pulse Assessment Method: Pulse Oximetry - Respirations Respiratory Rate: 16 Oxygen Delivery Method: Room Air O2 Sat by Pulse Oximetry: 98 - Blood Pressure Right Arm Blood Pressure: 139/76 Blood Pressure Mean: 97 Blood Pressure Source: Automatic Cuff Medical Screen Scoring - Cervical Exam Membranes: Intact - Uterine Contractions Intensity: Absent Resting: Soft to palpation - Assessment - Baby A Baseline FHR: 135 Heart Rate - NICHD Category: Category II (Indeterminate) NST: Reactive Physician Notification - Physician Notified Physician Notified Date: 11/17/24 Physician Notified Time: 19:47 Physician: Maria Esther Osman New Order Received: Yes - Notification Comment Comment: Dr. Osman on unit, reported on pt complaints, GA,G/P, pt assessment, strip reviewed, hx complete placenta previa. Order for U/A, 1Liter bolus LR. Maternal Triage Index - Maternal Triage Index Presenting for scheduled procedure w/no complaint: No - Stat/Priority 1 Stat Priority 1: No - Urgent/Priority 2 Urgent Priority 2: Yes Provider Notified: Maria Esther Osman Provider Notified Time: 19:47 Criteria Met for Priority 2: 29weeks 1/7 c/o contractions 8/10. hx placenta previa Disposition - Disposition OB Disposition: Discharge to home Discharge Date: 11/17/24 Discharge Time: 21:10 I agree with the RN Medical Screening Exam: Yes Physician's MSE Comment: I have neither seen nor examined the patient Case reviewed; plan agreed upon as documented in EMR&OBIX.: Yes Diagnosis: RELATED CONDITIONS, UNSPECIFIED, THIRD TRIMESTER
== END 2024-11-17 21:10 | disposition home or self-care (01) ==
LOC: FBPOP 19:26
PROVIDERS: ATTEND Obstetrics & Gynecology
DX: O26.893 Other specified pregnancy related conditions, third trimester (principal); O99.333 Smoking (tobacco) complicating pregnancy, third trimester; F17.200 Nicotine dependence, unspecified, uncomplicated; Z3A.29 29 weeks gestation of pregnancy
CPT/HCPCS: 59025; 96360; 36415; 81003; G0463; 99214